=== PATIENT | male | born 1940 | race Native Hawaiian/Other Pacific Islander ===

== ENCOUNTER 2021-12-27 02:04 | Inpatient (IN) | payer MEDICARE, SELFPAY ==
[2021-12-27] VITALS (12 sets, daily range): BP systolic 114–213; BP diastolic 50–90; PULSE 74–96; RESP 16–22; TEMP 36.1–37.1; O2SAT 91–98; BMI 25.0
--- NOTE | 2021-12-27 02:19 | ED_ITS ---
HPI - Abdominal Pain General Chief Complaint: Abdominal Pain Stated Complaint: ABD. PAIN Time Seen by Provider: 12/27/21 02:06 History of Present Illness HPI narrative: 81-year-old male nonsmoker with cardiac history on Eliquis presents with his daughter and a chief complaint of at least 3 days of severe, generalized abdominal pain with nausea. He is had no bowel movements over this time but is still passing gas. This pain is worse when he moves and improves with rest. He denies any radiation of his pain. He denies any history of the same and has never had abdominal surgery. He denies any new medications or dietary change. He is visiting locally from [place]. He denies runny nose, sore throat or cough. He is had no chest pain, shortness of breath nor fever or chills. He denies urinary complaints such as dysuria, frequency or urgency. Related Data Home Medications Medication Instructions Recorded Confirmed abiraterone 250 mg tablet (Zytiga) 1,000 mg PO DAILY 12/27/21 12/27/21 acetaminophen 325 mg capsule 325 mg PO QID PRN Pain (Scale 12/27/21 12/27/21 (Tylenol) Score 1-3) amiodarone 200 mg tablet 200 mg PO BID 12/27/21 12/27/21 amiodarone 200 mg tablet mg 12/27/21 apixaban 5 mg tablet 5 mg PO BID 12/27/21 12/27/21 ascorbic acid (vitamin C) 500 mg 500 mg PO DAILY 12/27/21 12/27/21 tablet benzonatate 200 mg capsule 200 mg PO TID PRN Cough 12/27/21 12/27/21 clobetasol 0.05 % topical cream 1 applic topical BID PRN rash on 12/27/21 12/27/21 palms empagliflozin 25 mg tablet 25 mg PO QAM 12/27/21 12/27/21 empagliflozin 25 mg tablet mg 12/27/21 (Jardiance) metoprolol succinate 100 mg 100 mg PO DAILY 12/27/21 12/27/21 tablet,extended release 24 hr multivitamin with minerals-folic 1 tab PO DAILY 12/27/21 12/27/21 acid 0.4 mg tablet nifedipine 90 mg tablet,extended 90 mg PO DAILY 12/27/21 12/27/21 release pravastatin 20 mg tablet 20 mg PO DAILY 12/27/21 12/27/21 prednisone 10 mg tablet 10 mg PO DAILY 12/27/21 12/27/21 sitagliptin 50 mg-metformin ER 2 tab PO DAILY 12/27/21 12/27/21 1,000 mg tablet,extended release 24h mp (Janumet XR) Allergies Allergy/AdvReac Type Severity Reaction Status Date / Time No Known Drug Allergies Allergy Verified 12/27/21 02:39 Review of Systems Review of Systems Narrative: GENERAL: Denies chills, fatigue, malaise, fever, sweats. HEENT: Denies sinus pain, ear pain, sore throat, difficulty swallowing, dizziness. RESPIRATORY: Denies dyspnea, cough, wheezing, hemoptysis, sputum. CARDIOVASCULAR: Denies chest pain, palpitations, orthopnea, edema, GASTROINTESTINAL: See HPI : Denies dysuria, frequency, incontinence, hematuria, urinary retention. MUSCULOSKELETAL: denies weakness, joint pain, or bony pain SKIN: Denies rash, skin lesions, or other NEUROLOGIC: Denies weakness, headache, numbness, change in speech, confusion, seizures, incoordination. PSYCHIATRIC: No concerning psychosocial issues. 12 point review of systems is negative except for those stated above Patient History Medical History (Updated 12/27/21 @ 08:56 by Antoinette Jackson RN) Afib Diabetes mellitus Hydronephrosis of right kidney Hyperlipidemia Hypertension Social History household members: spouse and family Smoking Status: Never smoker Exam Narrative Exam Narrative: GENERAL: [81] year old patient appears stated age. Well-developed patient, in mild distress. HEAD: Atraumatic. Normocephalic. EYES: Pupils equal round and reactive. Extraocular motions intact. No scleral icterus. No injection or drainage. ENT: Nose without bleeding, purulent drainage. Throat without erythema, tonsillar hypertrophy or exudate. Airway patent. NECK: Trachea midline. Non tender CARDIOVASCULAR: Regular rate and rhythm without murmurs, gallops, or rubs. RESPIRATORY: Clear to auscultation. Breath sounds equal bilaterally. No wheezes, rales, or rhonchi. GASTROINTESTINAL: Abdomen soft, non-tender, nondistended. EXTREMITIES: No edema or joint tenderness. BACK: Nontender without deformity or crepitance. No flank tenderness. NEURO: AOx3. SKIN: No rash or erythema of visible areas Initial Vital Signs Initial Vital Signs: Vital Signs Temperature 98.8 F 12/27/21 02:36 Pulse Rate 95 H 12/27/21 02:36 Respiratory Rate 19 12/27/21 02:36 Blood Pressure 201/86 H 12/27/21 02:36 Pulse Oximetry 96 12/27/21 02:36 Oxygen Delivery Method 12/27/21 02:36 Course Orders Ordered: Acetaminophen (Acetaminophen 325 Mg Tablet) 650 mg PO Q6HR [facility] Last Admin: 12/27/21 17:39 Dose: Not Given Documented By: Admin: 12/27/21 12:18 Dose: 650 mg Documented By: LORRIE Amiodarone HCl (Amiodarone 200 Mg Tablet) 200 mg PO BID [facility] Last Admin: 12/27/21 11:14 Dose: 200 mg Documented By: LORRIE Apixaban (Apixaban 5 Mg Tablet) 2.5 mg PO BID [facility] Bisacodyl (Bisacodyl 5 Mg Tablet) 5 mg PO BID PRN PRN Reason: Constipation Last Admin: 12/27/21 13:24 Dose: 5 mg Documented By: LORRIE Docusate Sodium (Docusate 100 Mg Capsule) 100 mg PO BID [facility] Last Admin: 12/27/21 13:24 Dose: 100 mg Documented By: LORRIE Sodium Chloride (Normal Saline 0.9%) 1,000 mls @ 150 mls/hr IV CONT [facility] Last Admin: 12/27/21 09:52 Dose: 150 mls/hr Documented By: Infusion: 12/27/21 09:52 Dose: 150 mls/hr Documented By: Admin: 12/27/21 07:18 Dose: 150 mls/hr Documented By: AMBER Metoprolol Succinate (Metoprolol Er 50 Mg Tablet) 100 mg PO DAILY [facility] Last Admin: 12/27/21 09:52 Dose: 100 mg Documented By: LORRIE Morphine Sulfate (Morphine 2 Mg/Ml Inj) 2 mg IV Q4H PRN PRN Reason: Pain, Moderate (4-6) Last Admin: 12/27/21 16:29 Dose: 2 mg Documented By: Admin: 12/27/21 12:19 Dose: 2 mg Documented By: LORRIE Nifedipine (Nifedipine 30 Mg Tab Er) 90 mg PO DAILY [facility] Last Admin: 12/27/21 09:52 Dose: 90 mg Documented By: LORRIE Empagliflozin ( Jardiance) 25 Mg Tablet 25 mg PO DAILY [facility] Last Admin: 12/27/21 09:55 Dose: 25 mg Documented By: LORRIE Ondansetron HCl (Ondansetron 4 Mg/2 Ml Inj) 4 mg IV Q8HR PRN PRN Reason: Nausea And Vomiting Last Admin: 12/27/21 12:19 Dose: 4 mg Documented By: LORRIE Ondansetron HCl (Ondansetron 4 Mg Odt) 4 mg PO Q8HR PRN PRN Reason: Nausea And Vomiting Polyethylene Glycol (Polyethylene Glycol 3350 17 Gm Powd.Pack) 17 gm PO DAILY [facility] Last Admin: 12/27/21 13:24 Dose: 17 gm Documented By: LORRIE Pravastatin Sodium (Pravastatin 20 Mg Tablet) 20 mg PO DAILY [facility] Last Admin: 12/27/21 09:52 Dose: 20 mg Documented By: LORRIE Prednisone (Prednisone 5 Mg Tablet) 10 mg PO DAILY [facility] Last Admin: 12/27/21 11:13 Dose: 10 mg Documented By: LORRIE Sennosides (Sennosides 8.6 Mg Tablet) 8.6 mg PO BEDTIME [facility] Discontinued Medications Apixaban (Apixaban 5 Mg Tablet) 5 mg PO BID [facility] Last Admin: 12/27/21 11:13 Dose: 5 mg Documented By: LORRIE Enoxaparin Sodium (Enoxaparin 40 Mg/0.4 Ml Syringe) 40 mg SUBCUT DAILY [facility] Hydromorphone HCl (Hydromorphone 0.5 Mg Inj) 0.5 mg IV NOW ONE Stop: 12/27/21 02:20 Last Admin: 12/27/21 02:46 Dose: 0.5 mg Documented By: SUKUMAR Sodium Chloride (Normal Saline 0.9%) 1,000 mls @ 1,000 mls/hr IV BOLUS ONE Stop: 12/27/21 03:18 Last Infusion: 12/27/21 03:45 Dose: 0 mls/hr Documented By: Admin: 12/27/21 02:46 Dose: 1,000 mls/hr Documented By: SUKUMAR Piperacillin Sod/Tazobactam (Sod 4.5 gm/ Sodium Chloride) 100 mls @ 200 mls/hr IV NOW ONE Stop: 12/27/21 03:18 Last Infusion: 12/27/21 04:59 Dose: 0 mls/hr Documented By: Admin: 12/27/21 03:47 Dose: 200 mls/hr Documented By: SUKUMAR Sodium Chloride (Normal Saline 0.9%) 2,041.17 mls @ 680.39 mls/hr 30 ml/kg infuse over 3 hr (2041.17 ml) IV NOW ONE Stop: 12/27/21 06:16 Last Admin: 12/27/21 03:47 Dose: 680.39 mls/hr Documented By: SUKUMAR Ondansetron HCl (Ondansetron 4 Mg/2 Ml Inj) 4 mg IV NOW ONE Stop: 12/27/21 02:20 Last Admin: 12/27/21 02:46 Dose: 4 mg Documented By: USKUMAR Ondansetron HCl (Ondansetron 4 Mg/2 Ml Inj) 4 mg IV NOW ONE Stop: 12/27/21 04:59 Last Admin: 12/27/21 05:10 Dose: 4 mg Documented By: SUKUMAR Vital Signs Vital signs: Vital Signs - 8 hr 12/27/21 02:36 Temperature 98.8 F Pulse Rate 95 H Respiratory Rate 19 Blood Pressure 201/86 H Pulse Oximetry 96 Oxygen Delivery Method Room Air MDM - Abdominal Pain Lab Data Result diagrams: 12/27/21 02:25 12/27/21 02:25 Labs: Lab Results 12/27/21 12/27/21 12/27/21 Range/Units 02:25 02:25 02:25 WBC 11.3 H (4.5-11.0) X10^3/uL RBC 5.01 (4.5-5.9) X10^6/uL Hgb 13.1 L (13.5-17.5) g/dL Hct 40.9 L (41-53) % MCV 81.7 (80-100) fL MCH 26.1 (26-34) PG MCHC 32.0 (30-36) % RDW 19.0 H (11.6-14.8) % Plt Count 290 (150-400) X10^3/uL Neut % (Auto) 92.1 H (50-75) % Lymph % (Auto) 5.7 L (25-40) % [place] % (Auto) 1.7 L (3-14) % Eos % (Auto) 0.3 L (2-4) % Baso % (Auto) 0.2 (0-2) % Neut # (Auto) 25886 H (0585-5609) /uL Lymph # (Auto) 600 L (2429-3002) /uL [place] # (Auto) 200 (0-900) /uL Eos # (Auto) 0 (0-450) /uL Baso # (Auto) 0 (0-100) /uL Sodium 139 (137-145) mmol/L Potassium 3.8 (3.4-5.1) mmol/L Chloride 105 (98-107) mmol/L Carbon Dioxide 21 L (22-32) mmol/L BUN 23 H (9-20) mg/dL Creatinine 1.50 H (0.66-1.25) mg/dL Estimated GFR 47 L (>60) mL/min BUN/Creatinine Ratio 15.3 (6-22) Glucose 181 H (80-110) mg/dL Lactate 4.1 H* (0.7-2.1) mmol/L Calcium 9.0 (8.4-10.2) mg/dL Total Bilirubin 0.4 (0.2-1.3) mg/dL AST 25 (17-59) IU/L ALT 21 (<50) IU/L Alkaline Phosphatase 47 (38-126) U/L Total Protein 7.7 (6.3-8.2) g/dL Albumin 4.2 (3.5-5.0) g/dL Globulin 3.5 (1.7-4.1) g/dL Albumin/Globulin Ratio 1.2 (1.0-2.8) Lipase (23-300) U/L Urine Color Urine Appearance Urine pH (4.5-8.0) Ur Specific [place] (1.000-1.035) Urine Protein (Negative) Urine Glucose (UA) (Negative) g/dL Urine Ketones (NEGATIVE) Urine Occult Blood (Negative) Urine Nitrate (Negative) Urine Bilirubin (NEGATIVE) Urine Urobilinogen (0.2) E.U./dL Ur Leukocyte Esterase (NEGATIVE) Urine RBC (0-5/HPF) Urine WBC (0-5/HPF) Urine Bacteria (None) Ur Culture Indicated? SARS-CoV-2 (PCR) (Negative) Blood Type Antibody Screen 12/27/21 12/27/21 12/27/21 Range/Units 02:25 02:46 02:49 WBC (4.5-11.0) X10^3/uL RBC (4.5-5.9) X10^6/uL Hgb (13.5-17.5) g/dL Hct (41-53) % MCV (80-100) fL MCH (26-34) PG MCHC (30-36) % RDW (11.6-14.8) % Plt Count (150-400) X10^3/uL Neut % (Auto) (50-75) % Lymph % (Auto) (25-40) % [place] % (Auto) (3-14) % Eos % (Auto) (2-4) % Baso % (Auto) (0-2) % Neut # (Auto) (1666-7666) /uL Lymph # (Auto) (8724-6444) /uL [place] # (Auto) (0-900) /uL Eos # (Auto) (0-450) /uL Baso # (Auto) (0-100) /uL Sodium (137-145) mmol/L Potassium (3.4-5.1) mmol/L Chloride (98-107) mmol/L Carbon Dioxide (22-32) mmol/L BUN (9-20) mg/dL Creatinine (0.66-1.25) mg/dL Estimated GFR (>60) mL/min BUN/Creatinine Ratio (6-22) Glucose (80-110) mg/dL Lactate (0.7-2.1) mmol/L Calcium (8.4-10.2) mg/dL Total Bilirubin (0.2-1.3) mg/dL AST (17-59) IU/L ALT (<50) IU/L Alkaline Phosphatase (38-126) U/L Total Protein (6.3-8.2) g/dL Albumin (3.5-5.0) g/dL Globulin (1.7-4.1) g/dL Albumin/Globulin Ratio (1.0-2.8) Lipase 51 (23-300) U/L Urine Color Urine Appearance Urine pH (4.5-8.0) Ur Specific [place] (1.000-1.035) Urine Protein (Negative) Urine Glucose (UA) (Negative) g/dL Urine Ketones (NEGATIVE) Urine Occult Blood (Negative) Urine Nitrate (Negative) Urine Bilirubin (NEGATIVE) Urine Urobilinogen (0.2) E.U./dL Ur Leukocyte Esterase (NEGATIVE) Urine RBC (0-5/HPF) Urine WBC (0-5/HPF) Urine Bacteria (None) Ur Culture Indicated? SARS-CoV-2 (PCR) Negative (Negative) Blood Type A Positive Antibody Screen Negative 12/27/21 12/27/21 Range/Units 04:30 05:03 WBC (4.5-11.0) X10^3/uL RBC (4.5-5.9) X10^6/uL Hgb (13.5-17.5) g/dL Hct (41-53) % MCV (80-100) fL MCH (26-34) PG MCHC (30-36) % RDW (11.6-14.8) % Plt Count (150-400) X10^3/uL Neut % (Auto) (50-75) % Lymph % (Auto) (25-40) % [place] % (Auto) (3-14) % Eos % (Auto) (2-4) % Baso % (Auto) (0-2) % Neut # (Auto) (1114-1287) /uL Lymph # (Auto) (5350-5048) /uL [place] # (Auto) (0-900) /uL Eos # (Auto) (0-450) /uL Baso # (Auto) (0-100) /uL Sodium (137-145) mmol/L Potassium (3.4-5.1) mmol/L Chloride (98-107) mmol/L Carbon Dioxide (22-32) mmol/L BUN (9-20) mg/dL Creatinine (0.66-1.25) mg/dL Estimated GFR (>60) mL/min BUN/Creatinine Ratio (6-22) Glucose (80-110) mg/dL Lactate 2.8 H (0.7-2.1) mmol/L Calcium (8.4-10.2) mg/dL Total Bilirubin (0.2-1.3) mg/dL AST (17-59) IU/L ALT (<50) IU/L Alkaline Phosphatase (38-126) U/L Total Protein (6.3-8.2) g/dL Albumin (3.5-5.0) g/dL Globulin (1.7-4.1) g/dL Albumin/Globulin Ratio (1.0-2.8) Lipase (23-300) U/L Urine Color Yellow Urine Appearance Cloudy Urine pH 6.5 (4.5-8.0) Ur Specific [place] <=1.005 (1.000-1.035) Urine Protein 2+ H (Negative) Urine Glucose (UA) 1+ H (Negative) g/dL Urine Ketones Negative (NEGATIVE) Urine Occult Blood 3+ H (Negative) Urine Nitrate Negative (Negative) Urine Bilirubin Negative (NEGATIVE) Urine Urobilinogen 0.2 (0.2) E.U./dL Ur Leukocyte Esterase Negative (NEGATIVE) Urine RBC 30-100/hpf H (0-5/HPF) Urine WBC 1-5/hpf (0-5/HPF) Urine Bacteria Few (2-10) H (None) Ur Culture Indicated? Cult not indicated SARS-CoV-2 (PCR) (Negative) Blood Type Antibody Screen Imaging Data CT scan - abdomen/pelvis: Radiologist's Impression: [address] [id number] ReportSigned Patient: Torsten SANTIAGO JR FMR#: [id number]: 01/08/1930cct:[id number]/Sex: 89 / MDate of Service: 12/27/21Loc: EDAccession Number: [id number] Procedure: XR chest 2V Ordering Provider: Michelle Edwards D.O. PROCEDURE: XR CHEST 2V INDICATIONS: shortness of breath TECHNIQUE: 2 views of the chest were acquired. COMPARISON: [facility], CT, CT ANGIO CHEST ABDOMEN PELVIS, 12/18/2020, 17:09. [facility], CR, XR CHEST 1V, 12/18/2020, 14:11. FINDINGS: Surgical changes and devices: Postsurgical changes of the upper abdomen left axilla. Lungs and pleura: Lungs are clear. No pleural effusions or pneumothorax. Mediastinum: Mediastinal contours are normal. Heart size is normal. Vascular calcifications throughout the aorta. Bones and chest wall: No suspicious bony abnormalities or acute osseous abnormality.. Soft tissues appear unremarkable. IMPRESSION: No evidence of an acute cardiopulmonary abnormality. Dictated by: Jer Lipscomb D.O. on 12/27/2021 at 16:42 Approved by: Jer Lipscomb D.O. on 12/27/2021 at 16:47 MDM Narrative Medical decision making narrative: Patient presents with significant abdominal pain and distention with critically elevated lactate and partial clearance after resuscitation. He has required multiple doses IV pain control and antiemetics, he will require hospitalization for further characterization stabilization of his condition Discharge Plan Departure Patient Disposition: Admitted As Inpatient Clinical Impression: Abdominal pain, Acidosis, lactic Admit Date/Time: 12/27/21 05:51 Admit Provider: Omero Pan
--- NOTE | 2021-12-27 02:19 | DI.RAD.S_ITS ---
PROCEDURE: XR ACUTE ABDOMEN SERIES INDICATIONS: Abdominal pain TECHNIQUE: One view chest and two views of the abdomen were acquired. COMPARISON: [facility], CT, CT ABDOMEN PELVIS W CON, 12/27/2021, 3:01. FINDINGS: Surgical changes and devices: Likely postsurgical changes of the distal right clavicle. Chest: Small left-sided pleural effusion. Predominantly linear densities noted at the left lung base. Heart size is normal. Vascular calcifications within the aorta. No pleural effusions. No pneumoperitoneum. Abdomen: Bowel gas pattern is nonobstructed. No suspicious calcifications. Visualized solid organ contours appear normal. No free air. Postsurgical changes of the pelvis. Bones: No suspicious bony lesions. Degenerative changes of the shoulders, spine, and hips. IMPRESSION: Nonobstructive bowel gas pattern without evidence of free air. Left lung base small pleural effusion with adjacent atelectasis. Developing consolidation not excluded. No significant discrepancies from preliminary report. Dictated by: Jer Lipscomb D.O. on 12/27/2021 at 6:09 Approved by: Jer Lipscomb D.O. on 12/27/2021 at 6:14
[2021-12-27 02:39] LABS: Add Manual Diff / Slide Review NO; Basophils Absolute Auto 0 /uL (0-100); Basophils Percent Auto 0.2 % (0-2); Eosinophils Absolute Auto 0 /uL (0-450); Eosinophils Percent Auto 0.3 % (2-4); Hematocrit 40.9 % (41-53); Hemoglobin 13.1 g/dL (13.5-17.5); Lymphocytes Absolute Auto 600 /uL (1100-4500); Lymphocytes Percent Auto 5.7 % (25-40); Mean Corpuscular Hemoglobin 26.1 PG (26-34); Mean Corpuscular Volume 81.7 fL (80-100); Monocytes Absolute Auto 200 /uL (0-900); Monocytes Percent Auto 1.7 % (3-14); Neutrophils Absolute Auto 10400 /uL (1500-7000); Neutrophils Percent Auto 92.1 % (50-75); Platelet Count 290 X10^3/uL (150-400); Red Blood Cell Count 5.01 X10^6/uL (4.5-5.9); White Blood Cell Count 11.3 X10^3/uL (4.5-11.0)
[2021-12-27] MEDS: HYDROMORPHONE 0.5 MG INJ IV (02:46)
[2021-12-27] MEDS: ONDANSETRON 4 MG/2 ML INJ IV ×3 (02:46→12:19)
[2021-12-27] MEDS: SODIUM CHLORIDE 0.9% 1,000 ML 1000 ML IV (02:46)
[2021-12-27 02:51] LABS: Alanine Aminotransferase 21 IU/L (<50); Albumin 4.2 g/dL (3.5-5.0); Albumin Globulin Ratio 1.2 (1.0-2.8); Alkaline Phosphatase 47 U/L (38-126); Aspartate Aminotransferase 25 IU/L (17-59); BUN Creatinine Ratio 15.3 (6-22); Bilirubin Total 0.4 mg/dL (0.2-1.3); Blood Urea Nitrogen 23 mg/dL (9-20); Carbon Dioxide 21 mmol/L (22-32); Chloride 105 mmol/L (98-107); Estimated Glomerular Filt Rate 47 mL/min (>60); Globulin 3.5 g/dL (1.7-4.1); Glucose 181 mg/dL (80-110); HEMOLYSIS 18 (0-50); Potassium 3.8 mmol/L (3.4-5.1); Sodium 139 mmol/L (137-145); Total Protein 7.7 g/dL (6.3-8.2)
--- NOTE | 2021-12-27 02:55 | DI.CT.S_ITS ---
PROCEDURE: CT ABDOMEN PELVIS W CON INDICATIONS: severe abdominal pain TECHNIQUE: After the administration of intravenous contrast, axial sections acquired from the lung bases to the pubic symphysis. Coronal and sagittal reformats were performed. For radiation dose reduction, the following was used: automated exposure control, adjustment of mA and/or kV according to patient size. COMPARISON: None. FINDINGS: Image quality: Excellent. Lung bases: Small left-sided pleural effusion. There is left basilar atelectasis. Mild dependent atelectasis bilaterally. Heart: Heart size is normal. No pericardial effusion. Coronary vascular calcifications and aortic valvular calcifications. ABDOMEN: Liver: Subcentimeter hypodensities within the liver too small to further characterize but statistically represent simple cysts. Gallbladder: Layering gallstones noted. No wall thickening or surrounding inflammation to suggest acute cholecystitis. Biliary ducts: Unremarkable. Pancreas: Unremarkable. Spleen: Unremarkable. Adrenal Glands: Unremarkable. Kidneys and Ureters: There is moderate hydronephrosis of the right urinary collecting system. Right-sided simple cysts along with bilateral subcentimeter hypodensities too small to further characterize but statistically represent simple cysts. There is significant perinephric and periureteral inflammation worse along the right ureter. There is urothelial hyperenhancement, worse within the right ureter. Stomach and Bowel: Stomach is unremarkable. Inflammation noted adjacent to the proximal duodenum is likely secondary to urinary tract processes. Small amount of fluid is also alignment noted within the right greater than left pericolic gutters also favored to be due to additional process. No evidence of obstruction. Questionable wall thickening of the right colon likely secondary to nondistention. Appendix is normal. Moderate stool burden noted throughout the colon. Peritoneum: Small amount of ascites. No free air. Ventral Wall: No hernias. Abdominal Nodes: No retroperitoneal or mesenteric adenopathy by size criteria. Vessels: Aorta and inferior vena cava are normal in size. PELVIS: Pelvic Organs: Status post prostatectomy. Bladder: Bladder demonstrates mild wall thickening with adjacent inflammation. Pelvic Nodes: No enlarged lymph nodes. Miscellaneous: Small fat containing right greater than left inguinal hernias. Bones: Multiple sclerotic lesions noted throughout the spine most prominent throughout the L1 vertebral body and posterior elements. Bilateral pars defects of L5. No significant listhesis. Degenerative changes noted throughout the spine and hips. IMPRESSION: Findings most consistent with urinary tract infectious/inflammatory process with bladder wall thickening and inflammation with urothelial inflammation most prominently within the right collecting system. In addition there is moderate right-sided hydronephrosis. Other etiologies include recently passed calcifications, although favored less likely. Questionable wall thickening of the right colon with adjacent inflammation may represent colitis. This is increased in prominence given nondistention of the right colon. Recommend correlation with up-to-date colon cancer screening as well. Findings concerning for metastatic prostate cancer with multiple sclerotic lesions most noticeably within the L1 vertebrae. Cholelithiasis. Small left-sided pleural effusion with adjacent atelectasis. Findings discussed over the telephone with inpatient provider Dr. Servin by Dr. Jer Lipscomb at approximately 0650 hours AST on 12/27/2021. Dictated by: Jer Lipscomb D.O. on 12/27/2021 at 6:36 Approved by: Jer Lipscomb D.O. on 12/27/2021 at 6:57
[2021-12-27 03:06] LABS: Lactate (Lactic Acid) 4.1 mmol/L (0.7-2.1)
[2021-12-27 03:21] LABS: COVID19 -Nasal RAPID Negative (Negative)
[2021-12-27] MEDS: PIPERACILLIN/TAZO 4.5 GM in SODIUM CHLORIDE 0.9% 100 ML IV (03:47)
[2021-12-27] MEDS: SODIUM CHLORIDE 0.9% 2,041.17 ML 680.39 ML IV (03:47)
--- NOTE | 2021-12-27 03:55 | PC.NURSE ---
Pt reports pain is much better, states he is also sleepy. Pt quick to sleep in room, but maintains oxygen levels on RA, breathing adequately.
[2021-12-27 04:30] LABS: Reflexed Lactate in 2 Hours Y
[2021-12-27 04:52] LABS: Appearance Urine UA CLOUDY; Bilirubin Urine UA NEGATIVE (NEGATIVE); Color Urine UA YELLOW; Glucose Urine UA 1+ g/dL (Negative); Ketones Urine UA NEGATIVE (NEGATIVE); Leukocyte Esterase Urine UA NEGATIVE (NEGATIVE); Nitrite Urine UA NEGATIVE (Negative); Occult Blood Urine UA 3+ (Negative); Protein Urine UA 2+ (Negative); Specific Gravity Urine UA <=1.005 (1.000-1.035); Urobilinogen Urine UA 0.2 E.U./dL (0.2); pH Urine UA 6.5 (4.5-8.0)
[2021-12-27 04:53] LABS: Bacteria Urine Few (2-10); Culture Indicated Urine Cult Not Indicated; RBC Urine 30-100/HPF (0-5/HPF); WBC Urine 1-5/HPF (0-5/HPF)
[2021-12-27 05:19] LABS: Lactate 2HR (Lactic Acid Rflx) 2.8 mmol/L (0.7-2.1)
--- NOTE | 2021-12-27 06:40 | PC.ADMIT ---
[id number] [facility] Admission Note: The patient,Demetri Saldivar,81 y/o, was given written information regarding hospital policies, unit procedures and contact persons. Patient's smoking status: Never smoker. Vital Signs - 8 hr 12/27/21 02:36 12/27/21 06:19 12/27/21 03:27 Temperature 98.8 F Pulse Rate 95 H 74 Respiratory Rate 19 17 Blood Pressure 201/86 H 179/89 H 195/79 H Pulse Oximetry 96 93 Oxygen Delivery Method Room Air Room Air 12/27/21 03:27 12/27/21 03:30 12/27/21 03:30 Temperature Pulse Rate 85 86 Respiratory Rate Blood Pressure 174/77 H Pulse Oximetry 93 92 Oxygen Delivery Method 12/27/21 04:00 12/27/21 04:01 12/27/21 04:01 Temperature Pulse Rate 90 91 H Respiratory Rate Blood Pressure 213/90 H Pulse Oximetry 93 93 Oxygen Delivery Method 12/27/21 04:30 12/27/21 04:31 12/27/21 04:31 Temperature Pulse Rate 96 H 91 H Respiratory Rate Blood Pressure 189/74 H Pulse Oximetry 93 93 Oxygen Delivery Method Patient up from the ED via stretcher at 0630. Moved over to bed via slider board and [address] Pan in to see patient at this time.
--- NOTE | 2021-12-27 06:42 | PM.HP.1 ---
History of Present Illness History of Present Illness Date Patient Seen: 12/27/21 Time Patient Seen: 06:42 Chief complaint: ABD. PAIN Narrative: This is an 81-year-old male with an extensive past medical history which he is unable to describe who presents now with 1 day of abdominal pain, onset of vomiting early this morning and apparent lactic acidosis. He is visiting his daughter from [place]. We are still obtaining his medication list to establish some of the parts of his past medical history. He denies any history of previous abdominal pain condition or abdominal surgery. A lipase level is pending. He does not drink alcohol. He has no history of pancreatitis or colitis. He has no urinary history that he can tell us about. There has been no fever, diarrhea or rectal bleeding. He has had no bowel movement for 3 days. His white blood count is 11.3 with a lactic acid level of 2.8. The creatinine is 1.5. The baseline is unclear. His CT scan shows [id number] right hydronephrosis with inflammation of the UPJ area. There is low-grade cystitis and there is mild wall thickening of the cecum and colon. The differential remains broad with possible viral gastroenteritis, isolated colitis, pancreatitis, ureterolithiasis, cystitis and pyelonephritis. His UA has 30-100 rbc's and 1-5 wbc's. Patient History Medical History (Updated 12/27/21 @ 07:04 by Omero Pan MD) Afib Diabetes mellitus Hyperlipidemia Hypertension Family & Social History Family history unavailable: Yes Social History: He is visiting from [place] Safety & Behavioral: Feels Safe in Current Yes Environment Tobacco & Substance use: Smoking Status Never smoker alcohol intake frequency 0-2 drinks per day Substance Use Type does not use Meds Home Medications and Allergies Home Medications Medication Instructions Recorded Confirmed Type abiraterone 250 mg tablet (Zytiga) 1,000 mg PO DAILY 12/27/21 12/27/21 History acetaminophen 325 mg capsule 325 mg PO QID PRN Pain (Scale 12/27/21 12/27/21 History (Tylenol) Score 1-3) amiodarone 200 mg tablet 200 mg PO BID 12/27/21 12/27/21 History amiodarone 200 mg tablet mg 12/27/21 History apixaban 5 mg tablet 5 mg PO BID 12/27/21 12/27/21 History ascorbic acid (vitamin C) 500 mg 500 mg PO DAILY 12/27/21 12/27/21 History tablet benzonatate 200 mg capsule 200 mg PO TID PRN Cough 12/27/21 12/27/21 History clobetasol 0.05 % topical cream 1 applic topical BID PRN rash on 12/27/21 12/27/21 History palms empagliflozin 25 mg tablet 25 mg PO QAM 12/27/21 12/27/21 History empagliflozin 25 mg tablet mg 12/27/21 History (Jardiance) metoprolol succinate 100 mg 100 mg PO DAILY 12/27/21 12/27/21 History tablet,extended release 24 hr multivitamin with minerals-folic 1 tab PO DAILY 12/27/21 12/27/21 History acid 0.4 mg tablet nifedipine 90 mg tablet,extended 90 mg PO DAILY 12/27/21 12/27/21 History release pravastatin 20 mg tablet 20 mg PO DAILY 12/27/21 12/27/21 History prednisone 10 mg tablet 10 mg PO DAILY 12/27/21 12/27/21 History sitagliptin 50 mg-metformin ER 2 tab PO DAILY 12/27/21 12/27/21 History 1,000 mg tablet,extended release 24h mp (Janumet XR) Allergies Allergy/AdvReac Type Severity Reaction Status Date / Time No Known Drug Allergies Allergy Verified 12/27/21 02:39 Review of Systems Review of Systems Narrative: Positive for abdominal pain, weakness and vomiting. Negative for fevers, chills, sweats, diarrhea, rectal bleeding, coughing, chest pain, headaches, joint pain, seizures, sore throat, new allergies Exam Vital Signs (past 8 hours): - 12/27/21 02:36 12/27/21 06:19 12/27/21 03:27 Temperature 98.8 F Pulse Rate 95 H 74 Respiratory Rate 19 17 Blood Pressure 201/86 H 179/89 H 195/79 H Pulse Oximetry 96 93 Oxygen Delivery Method Room Air Room Air 12/27/21 03:27 12/27/21 03:30 12/27/21 03:30 Temperature Pulse Rate 85 86 Respiratory Rate Blood Pressure 174/77 H Pulse Oximetry 93 92 Oxygen Delivery Method 12/27/21 04:00 12/27/21 04:01 12/27/21 04:01 Temperature Pulse Rate 90 91 H Respiratory Rate Blood Pressure 213/90 H Pulse Oximetry 93 93 Oxygen Delivery Method 12/27/21 04:30 12/27/21 04:31 12/27/21 04:31 Temperature Pulse Rate 96 H 91 H Respiratory Rate Blood Pressure 189/74 H Pulse Oximetry 93 93 Oxygen Delivery Method Oxygen Delivery Method Room Air Narrative Exam Narrative: Alert but sleepy. No apparent distress Pupils are equally round and reactive to light and accommodation. Sclerae are pink and nonicteric. The right eyelid is glued shut and takes some effort to open Extraocular muscles are intact Throat looks mildly dehydrated and dry on the mucous membranes No lymph nodes are felt head, neck, supraclavicular area There is no thyromegaly JVD is less than 6 cm There is no carotid bruits heard Heart is regular rate and rhythm without murmur Lungs are clear to auscultation bilaterally Abdomen is soft, mildly distended, diffusely tender without localizing. Bowel sounds are soft. There is no organomegaly. Extremities have no ankle edema Skin has no rash or jaundice Neurological exam: Cranial nerves 2-12 test intact, there is no tremor, motor function is 4/5 throughout Objective Labs Result Diagrams: 12/27/21 02:25 12/27/21 02:25 Labs: Laboratory Results - last 24 hr 12/27/21 12/27/21 12/27/21 02:25 02:25 02:25 WBC 11.3 H RBC 5.01 Hgb 13.1 L Hct 40.9 L MCV 81.7 MCH 26.1 MCHC 32.0 RDW 19.0 H Plt Count 290 Neut % (Auto) 92.1 H Lymph % (Auto) 5.7 L [place] % (Auto) 1.7 L Eos % (Auto) 0.3 L Baso % (Auto) 0.2 Neut # (Auto) 82395 H Lymph # (Auto) 600 L [place] # (Auto) 200 Eos # (Auto) 0 Baso # (Auto) 0 Sodium 139 Potassium 3.8 Chloride 105 Carbon Dioxide 21 L BUN 23 H Creatinine 1.50 H Estimated GFR 47 L BUN/Creatinine Ratio 15.3 Glucose 181 H Lactate 4.1 H* Calcium 9.0 Total Bilirubin 0.4 AST 25 ALT 21 Alkaline Phosphatase 47 Total Protein 7.7 Albumin 4.2 Globulin 3.5 Albumin/Globulin Ratio 1.2 Urine Color Urine Appearance Urine pH Ur Specific [place] Urine Protein Urine Glucose (UA) Urine Ketones Urine Occult Blood Urine Nitrate Urine Bilirubin Urine Urobilinogen Ur Leukocyte Esterase Urine RBC Urine WBC Urine Bacteria Ur Culture Indicated? SARS-CoV-2 (PCR) Blood Type Antibody Screen 12/27/21 12/27/21 12/27/21 02:46 02:49 04:30 WBC RBC Hgb Hct MCV MCH MCHC RDW Plt Count Neut % (Auto) Lymph % (Auto) [place] % (Auto) Eos % (Auto) Baso % (Auto) Neut # (Auto) Lymph # (Auto) [place] # (Auto) Eos # (Auto) Baso # (Auto) Sodium Potassium Chloride Carbon Dioxide BUN Creatinine Estimated GFR BUN/Creatinine Ratio Glucose Lactate Calcium Total Bilirubin AST ALT Alkaline Phosphatase Total Protein Albumin Globulin Albumin/Globulin Ratio Urine Color Yellow Urine Appearance Cloudy Urine pH 6.5 Ur Specific [place] <=1.005 Urine Protein 2+ H Urine Glucose (UA) 1+ H Urine Ketones Negative Urine Occult Blood 3+ H Urine Nitrate Negative Urine Bilirubin Negative Urine Urobilinogen 0.2 Ur Leukocyte Esterase Negative Urine RBC 30-100/hpf H Urine WBC 1-5/hpf Urine Bacteria Few (2-10) H Ur Culture Indicated? Cult not indicated SARS-CoV-2 (PCR) Negative Blood Type A Positive Antibody Screen Negative 12/27/21 05:03 WBC RBC Hgb Hct MCV MCH MCHC RDW Plt Count Neut % (Auto) Lymph % (Auto) [place] % (Auto) Eos % (Auto) Baso % (Auto) Neut # (Auto) Lymph # (Auto) [place] # (Auto) Eos # (Auto) Baso # (Auto) Sodium Potassium Chloride Carbon Dioxide BUN Creatinine Estimated GFR BUN/Creatinine Ratio Glucose Lactate 2.8 H Calcium Total Bilirubin AST ALT Alkaline Phosphatase Total Protein Albumin Globulin Albumin/Globulin Ratio Urine Color Urine Appearance Urine pH Ur Specific [place] Urine Protein Urine Glucose (UA) Urine Ketones Urine Occult Blood Urine Nitrate Urine Bilirubin Urine Urobilinogen Ur Leukocyte Esterase Urine RBC Urine WBC Urine Bacteria Ur Culture Indicated? SARS-CoV-2 (PCR) Blood Type Antibody Screen Assessment & Plan Assessment & Plan narrative: This is an 81-year-old male with an extensive past medical history which he is unable to describe who presents now with 1 day of abdominal pain, onset of vomiting early this morning and apparent lactic acidosis. He is visiting his daughter from [place]. Abdominal pain, present on admission. Active. - The differential remains broad with possible viral gastroenteritis, isolated colitis, pancreatitis, ureterolithiasis, cystitis and pyelonephritis. -the CT scan raises several possibilities and the microscopic hematuria suggests a urinary source. -his diffuse tenderness suggests pancreatitis and a lipase level is pending. -he will be on bowel rest with IV fluid resuscitation while the workup is ongoing. -no signs of a surgical abdomen so far. Lactic acidosis, present on admission. Active. -lactic acid level 2.8 on admission -secondary to acute abdominal process with gastroenteritis/urinary source suspected. -continue IV fluid resuscitation Microscopic hematuria, present on admission. Active. -CT scan suggests low-grade cystitis, right hydronephrosis and UPJ inflammation changes. -no signs of ureteral lithiasis on CT scan or neoplasm. -ED discussed this with Urology who did not feel there was an acute process for them to be involved with so far. Probable acute kidney injury, present on admission. Active. -creatinine is 1.5 with unknown baseline and possible CKD -continue IV fluid resuscitation and follow. Hyperglycemia, present on admission. Active. -glucose 181 on admission -probable diabetes mellitus, to be clarified today as his medication list arrives and more information is found. -follow blood sugars Other unknown medical problems, present admission. Chronic. -patient does not recall what conditions he has had. I would expect his medication list to be helpful. Lovenox for DVT prevention His daughter Prabha Hopper is his backup decision maker. Time Spent With Patient Critical Care time: I spent a total of [] minutes of critical care time on this patient's care today; this time is exclusive of procedural time.
[2021-12-27 07:03] LABS: Lipase 51 U/L (23-300)
[2021-12-27] MEDS: SODIUM CHLORIDE 0.9% 1,000 ML 150 ML IV ×2 (07:18→09:52)
[2021-12-27] MEDS: PRAVASTATIN 20 MG TABLET PO (09:52)
[2021-12-27] MEDS: NIFEdipine 30 MG TAB ER 90 MG PO (09:52)
[2021-12-27] MEDS: METOPROLOL ER 50 MG TABLET 100 MG PO (09:52)
[2021-12-27] MEDS: APIXABAN 5 MG TABLET PO (11:13)
[2021-12-27] MEDS: predniSONE 5 MG TABLET 10 MG PO (11:13)
--- NOTE | 2021-12-27 11:13 | CM.DANOTE ---
DCP Assessment: Payor: Medicare PCP: Unknown. Pt is a 81 y.o. M who presented to the ED with post 1 day of abdominal pain with onset of vomiting. Pt is visiting his daughter from [place]. Pt has a PMH of Afib, DM, hyperlipidemia, and HTN. Pt admitted for further management and evaluation for his abdominal pain and lactic acidosis. DCP met with pt and pt daughter this morning. Pt sleeping in bed. Daughter was able to meet with DCP. DCP introduced herself and role. Pt daughter, Prabha, states that the pt is visiting her from [place] and he is going to stay with her until February. Prabha states that the pt lives with his and daughter in [place] and he uses a cane to get around. Prabha states that he does not drive and relies on others for transportation. Prabha states that her mother is also in town with pt. Prabha denies any resources at this time but DCP provided her with her number as the plan progresses and other questions might arise. Prabha states that upon discharge, she will transport the back to her house. White board was updated and instructed to call. Prabha thankful for the discussion. P: Once pt is medically stable, pt to discharge to his daughters house via daughter POV. DCP to continue to follow. Rebecca Vaughan RN/LUCI Discharge Planning/Care Management CM Discharge Assessment Start: 12/27/21 09:36 Freq: Status: Active Protocol: Document 12/27/21 09:36 LESLI (Rec: 12/27/21 09:38 [id number]) Discharge Planning Assessment Assigned Drink Mixer Rebecca Vaughan RN/LUCI Advance Directives? No History Provided By Family Member Prior Living Arrangements House Comment Pt visiting from [place] and staying at his daughters home Household Members spouse,family Type of transporation used prior to Relies on Others admit Independent with ADL's Yes Is patient alert and oriented? Yes DME Already Rented / Owned Cane Discharge Plan Home Referrals Initiated None needed Additional Comment At this time. Whiteboard Updated in Patient Room with Yes name and ext. # of Drink Mixer Comment Instructed to call. Provided contact info to daughter as well Review Status In Process Please Provide Date Initial DC 12/27/21 Assessment Was Performed Next Review Type Continued Stay Review
[2021-12-27] MEDS: AMIODARONE 200 MG TABLET PO ×2 (11:14→20:53)
[2021-12-27] MEDS: ACETAMINOPHEN 325 MG TABLET 650 MG PO (12:18)
[2021-12-27] MEDS: MORPHINE 2 MG/ML INJ IV ×3 (12:19→20:51)
--- NOTE | 2021-12-27 12:30 | DI.RAD.S_ITS ---
PROCEDURE: XR ACUTE ABDOMEN SERIES INDICATIONS: worsening abd distension and shortness of breath, reassess TECHNIQUE: One view chest and two views of the abdomen were acquired. COMPARISON: [facility], CT, CT ABDOMEN PELVIS W CON, 12/27/2021, 3:01[facility], CR, XR ACUTE ABDOMEN SERIES, 12/27/2021, 2:35. FINDINGS: Surgical changes and devices: Postsurgical changes of prostatectomy and distal clavicle resection of the right shoulder. Chest: Stable appearance of small left-sided pleural effusion with adjacent left basilar atelectasis. No pneumoperitoneum. Abdomen: Bowel gas pattern is nonobstructed with air noted throughout the large bowel extending into the rectum. A few mildly prominent loops of air-filled small bowel. Air-filled stomach with air-fluid level. No suspicious calcifications. Visualized solid organ contours appear normal. Bones: Degenerative changes of the spine, hips, and shoulders. No acute osseous abnormality. IMPRESSION: No evidence of small-bowel obstruction. Dictated by: Jer Lipscomb D.O. on 12/27/2021 at 12:46 Approved by: Jer Lipscomb D.O. on 12/27/2021 at 12:50
[2021-12-27] MEDS: DOCUSATE 100 MG CAPSULE PO ×2 (13:24→20:53)
[2021-12-27] MEDS: polyethylene glycoL 3350 17 GM POWD.PACK PO (13:24)
[2021-12-27] MEDS: BISACODYL 5 MG TABLET PO (13:24)
[2021-12-27] MEDS: SENNOSIDES 8.6 MG TABLET PO (20:52)
[2021-12-27] MEDS: APIXABAN 5 MG TABLET 2.5 MG PO (20:53)
[2021-12-28] VITALS (11 sets, daily range): BP systolic 140–169; BP diastolic 56–68; PULSE 83–95; RESP 14–28; TEMP 36.9–37.4; O2SAT 94–98
[2021-12-28] MEDS: SODIUM CHLORIDE 0.9% 1,000 ML 150 ML IV ×4 (00:50→22:08)
[2021-12-28] MEDS: MORPHINE 2 MG/ML INJ IV ×3 (00:54→20:34)
[2021-12-28 05:18] LABS: Add Manual Diff / Slide Review NO; Basophils Absolute Auto 0 /uL (0-100); Basophils Percent Auto 0.1 % (0-2); Eosinophils Absolute Auto 0 /uL (0-450); Hematocrit 32.5 % (41-53); Hemoglobin 10.3 g/dL (13.5-17.5); Lymphocytes Absolute Auto 900 /uL (1100-4500); Lymphocytes Percent Auto 5.4 % (25-40); Mean Corpuscular HGB Conc 31.8 % (30-36); Mean Corpuscular Hemoglobin 25.8 PG (26-34); Mean Corpuscular Volume 81.1 fL (80-100); Monocytes Absolute Auto 700 /uL (0-900); Monocytes Percent Auto 4.1 % (3-14); Neutrophils Absolute Auto 14700 /uL (1500-7000); Neutrophils Percent Auto 90.4 % (50-75); Platelet Count 230 X10^3/uL (150-400); Red Blood Cell Count 4.01 X10^6/uL (4.5-5.9); Red Cell Distribution Width 18.6 % (11.6-14.8); White Blood Cell Count 16.2 X10^3/uL (4.5-11.0)
[2021-12-28 05:30] LABS: Alanine Aminotransferase 14 IU/L (<50); Albumin 3.2 g/dL (3.5-5.0); Alkaline Phosphatase 44 U/L (38-126); Aspartate Aminotransferase 23 IU/L (17-59); BUN Creatinine Ratio 12.1 (6-22); Bilirubin Total 0.4 mg/dL (0.2-1.3); Blood Urea Nitrogen 26 mg/dL (9-20); Calcium 7.5 mg/dL (8.4-10.2); Carbon Dioxide 20 mmol/L (22-32); Chloride 107 mmol/L (98-107); Estimated Glomerular Filt Rate 31 mL/min (>60); Globulin 3.3 g/dL (1.7-4.1); Glucose 83 mg/dL (80-110); HEMOLYSIS < 15 (0-50); Potassium 4.2 mmol/L (3.4-5.1); Sodium 135 mmol/L (137-145); Total Protein 6.5 g/dL (6.3-8.2)
[2021-12-28 05:34] LABS: Lipase 19 U/L (23-300)
[2021-12-28] MEDS: APIXABAN 5 MG TABLET 2.5 MG PO ×2 (07:51→19:59)
[2021-12-28] MEDS: NIFEdipine 30 MG TAB ER 90 MG PO (07:51)
[2021-12-28] MEDS: PRAVASTATIN 20 MG TABLET PO (07:52)
[2021-12-28] MEDS: predniSONE 5 MG TABLET 10 MG PO (07:52)
[2021-12-28] MEDS: AMIODARONE 200 MG TABLET PO ×2 (07:53→19:59)
[2021-12-28] MEDS: METOPROLOL ER 50 MG TABLET 100 MG PO (07:53)
[2021-12-28] MEDS: cefTRIAXone 1,000 MG in SODIUM CHLORIDE 0.9% 100 ML 200 MG IV (07:54)
--- NOTE | 2021-12-28 16:19 | P.PN_ITS ---
Subjective Subjective Date Patient Seen: 12/28/21 Interval history: He feels improved with his abdominal pain today, had a few very small bowel movements. His creatinine worsened slightly today. No fever, chills, nausea, or vomiting. Exam Vital Signs (past 8 hours): - 12/28/21 10:55 12/28/21 11:51 12/28/21 15:29 Temperature 98.7 F 98.8 F Pulse Rate 94 H 94 H Respiratory Rate 18 22 Blood Pressure 151/61 H 144/62 H Pulse Oximetry 98 96 Oxygen Delivery Method Nasal Cannula Oxygen Flow Rate 1.5 0 Oxygen Delivery Method Nasal Cannula Oxygen Flow Rate 0 Narrative Exam Narrative: General:? Patient is well developed and well nourished, in no distress at this time. HEENT:? Normocephalic, atraumatic, extraocular muscles intact, oral pharynx is clear and mucous membranes are moist. Neck: supple and symmetric, trachea is midline, no cervical adenopathy. Negative for JVD Chest:? Normal AP diameter and contour without kyphoscoliosis, no tachypnea, equal chest rise bilaterally. Lungs:? CTA b/l no wheezing rhonchi or rales. Cardio:?RRR no m/r/g. Abdomen: soft, mild distension, minimal tenderness R > L and lower > upper. Musculoskeletal:? Muscle strength and tone are equal within normal limits, no deformity. Extremities: No edema or joint effusions. No cyanosis or clubbing. Skin:? Pale,? Warm to touch,dry and intact without rashes, ulcerations or petechiae.? Neuro:? Alert and orientated x3,? sensation to touch intact in all extremities, no gross deficits noted of cranial nerves. Psych:? Patient has a well-kept appearance, appropriate affect, mental status attitude thought context and judgment are appropriate for age. Objective Labs Result Diagrams: 12/28/21 05:01 12/28/21 05:01 Labs: Laboratory Results - last 24 hr 12/28/21 12/28/21 12/28/21 05:01 05:01 05:01 WBC 16.2 H RBC 4.01 L Hgb 10.3 L Hct 32.5 L MCV 81.1 MCH 25.8 L MCHC 31.8 RDW 18.6 H Plt Count 230 Neut % (Auto) 90.4 H Lymph % (Auto) 5.4 L [place] % (Auto) 4.1 Eos % (Auto) 0.0 L Baso % (Auto) 0.1 Neut # (Auto) 70038 H Lymph # (Auto) 900 L [place] # (Auto) 700 Eos # (Auto) 0 Baso # (Auto) 0 Sodium 135 L Potassium 4.2 Chloride 107 Carbon Dioxide 20 L BUN 26 H Creatinine 2.14 H Estimated GFR 31 L BUN/Creatinine Ratio 12.1 Glucose 83 Calcium 7.5 L Total Bilirubin 0.4 AST 23 ALT 14 Alkaline Phosphatase 44 Total Protein 6.5 Albumin 3.2 L Globulin 3.3 Albumin/Globulin Ratio 1.0 Lipase 19 L D PFSH Medical History (Updated 12/27/21 @ 08:56 by Antoinette Jackson RN) Afib Diabetes mellitus Hydronephrosis of right kidney Hyperlipidemia Hypertension Social History household members: spouse and family Smoking Status: Never smoker Assessment & Plan Assessment & Plan narrative: This is an 81-year-old male with PMH of metastatic prostate cancer, DM2, HTN admitted with abdominal pain and acute kidney injury. Abdominal pain, present on admission. Active. - The differential remains broad with possible viral gastroenteritis, isolated colitis, pancreatitis, ureterolithiasis, cystitis and pyelonephritis. -the CT scan raises several possibilities and the microscopic hematuria suggests a urinary source. though urine cultures are negative. -lipase was within normal limits. -possible constipation as the cause as well, continue laxitive therapy. -continue cefepime given fever, though cultures negative. Will discontinue vancomycin today. -consider repeat CT tomorrow if no significant improvement. Lactic acidosis, present on admission. Active. -lactic acid level 2.8 on admission -secondary to acute abdominal process with gastroenteritis/urinary source suspected. -continue IV fluid resuscitation Microscopic hematuria, present on admission. Active. -CT scan suggests low-grade cystitis, right hydronephrosis and UPJ inflammation changes. -no signs of ureteral lithiasis on CT scan or neoplasm. -ED discussed this with Urology who did not feel there was an acute process for them to be involved with so far. acute kidney injury, present on admission. Active. -creatinine is 1.5 with unknown baseline and possible CKD, worsened to 2.[address] with R hydronephrosis but no obvious obstruction as discussed above. -continue IV fluid resuscitation and follow. -consider kidney US or repeat CT tomorrow if worsening kidney function, also depending on patient's symptoms. Type 2 diabetes, chronic -glucose 181 on admission -probable diabetes mellitus, to be clarified today as his medication list arrives and more information is found. -follow blood sugars Metastatic prostate cancer - patient with known metastatic prostate cancer with mets to bone. He has multiple sclerotic lesions noted on CT. HTN - continue home medications chronic atrial fibrillation - continue home medications and apixaban. Lovenox for DVT prevention His daughter Prabha Hopper is his backup decision maker. Code: School Lunch Manager Spent With Patient Critical Care time: I spent a total of [] minutes of critical care time on this patient's care today; this time is exclusive of procedural time.
[2021-12-28] MEDS: DOCUSATE 100 MG CAPSULE PO (19:58)
[2021-12-28] MEDS: SENNOSIDES 8.6 MG TABLET PO (19:59)
--- NOTE | 2021-12-28 20:39 | PC.NURSE ---
Pt c/o shortness of breath on 2 L NC sating in the mid 90's. Lungs are clear with some faint wheezing, RT called and at the bedside. No s/s of fluid overload, Morphine IVP given.
[2021-12-29] VITALS (9 sets, daily range): BP systolic 136–179; BP diastolic 58–78; PULSE 86–130; RESP 16–18; TEMP 36.2–37.1; O2SAT 94–98
--- NOTE | 2021-12-29 | DI.CT.S_ITS ---
PROCEDURE: CT IVP A/P W/WO INDICATIONS: follow up abdominal CT, ? obstruction or calyceal rupture TECHNIQUE: Optional 5 mm thick noncontrast images acquired from the diaphragm to the symphysis pubis. After the administration of intravenous contrast, 5 mm thick images acquired from the diaphragm to the symphysis pubis after a 10-minute delay. 2 mm thick coronal and sagittal reformats were then performed of the kidneys and ureters. For radiation dose reduction, the following was used: automated exposure control, adjustment of mA and/or kV according to patient size. COMPARISON: [facility], CT, CT ABDOMEN PELVIS W CON, 12/27/2021, 3:01. [facility], CT, CT ABDOMEN PELVIS WO CON, 12/29/2021, 10:58. FINDINGS: Image quality: Excellent. Lung bases: Small bilateral pleural effusions, increased. Bibasilar compressive atelectasis. Gynecomastia. Urinary system: There is excreted contrast outside of the right kidney and in the right pericolic gutter, (3/110). Overall there is a small volume of fluid. There is [id number] right kidney hydronephrosis. Possible small filling defects within the right kidney upper calices, (3/89). The proximal right ureter is prominent. The mid and distal right ureter does not opacify well with contrast. The left ureter is not dilated. No filling defect is identified. No left hydronephrosis. Small cysts in the right kidney. Other solid organs: Liver is within normal limits in size. Small well-circumscribed hepatic hypodensities which have the appearance of benign cysts. Gallbladder not significantly distended. Vicarious excretion of contrast. Small stones within the cystic duct are suspected, (3/72). Biliary system is non dilated. Pancreas enhances normally. No splenomegaly. No adrenal nodules. Peritoneum and bowel: Prominent loops of small bowel in the left abdomen. No discrete transition point. The appendix is not identified. No free fluid or air. Nodes and vessels: No retroperitoneal or mesenteric adenopathy by size criteria. Aorta and inferior vena cava are normal in size. Circumferential calcified atherosclerotic plaque. Abdominal wall: No ventral hernias. Pelvis: Small amount of fluid tracking into the pelvis. No inguinal hernias or adenopathy. Clips in the pelvis. Bones: Sclerosis at L1 and L2. Several additional sclerotic foci. No vertebral body compression fractures. Bilateral L5 pars defect. IMPRESSION: 1. Right kidney calyceal/forniceal rupture with leakage of excreted urine into the right perirenal space. [id number] right hydronephrosis. The proximal right ureter is prominent. Possible this filling defects within the right kidney superior calices. This could represent debris, hemorrhage, or neoplasm. 2. Sclerotic osseous lesions suspicious for metastatic disease. Possibly prostate cancer. 3. Probable stones within the cystic duct. 4. Prominent loops of small bowel. No discrete transition point to suggest obstruction. Developing ileus could have this appearance. Dictated by: Ceasar Dang M.D. on 12/29/2021 at 16:12 Approved by: Ceasar Dang M.D. on 12/29/2021 at 16:30
[2021-12-29] MEDS: MORPHINE 2 MG/ML INJ IV ×4 (01:49→15:54)
[2021-12-29] MEDS: SODIUM CHLORIDE 0.9% 1,000 ML 50 ML IV ×2 (02:16→11:30)
[2021-12-29] MEDS: METOPROLOL ER 50 MG TABLET 100 MG PO (05:49)
[2021-12-29 07:50] LABS: Add Manual Diff / Slide Review NO; Basophils Absolute Auto 0 /uL (0-100); Basophils Percent Auto 0.1 % (0-2); Eosinophils Absolute Auto 0 /uL (0-450); Eosinophils Percent Auto 0.1 % (2-4); Hematocrit 30.3 % (41-53); Lymphocytes Absolute Auto 500 /uL (1100-4500); Mean Corpuscular HGB Conc 32.9 % (30-36); Mean Corpuscular Hemoglobin 26.5 PG (26-34); Mean Corpuscular Volume 80.4 fL (80-100); Monocytes Absolute Auto 900 /uL (0-900); Monocytes Percent Auto 5.7 % (3-14); Neutrophils Absolute Auto 14300 /uL (1500-7000); Neutrophils Percent Auto 91.1 % (50-75); Platelet Count 216 X10^3/uL (150-400); Red Blood Cell Count 3.77 X10^6/uL (4.5-5.9); Red Cell Distribution Width 18.4 % (11.6-14.8); White Blood Cell Count 15.7 X10^3/uL (4.5-11.0)
[2021-12-29 08:12] LABS: HEMOLYSIS < 15 (0-50); Potassium 3.7 mmol/L (3.4-5.1)
[2021-12-29 08:13] LABS: BUN Creatinine Ratio 13.3 (6-22); Blood Urea Nitrogen 22 mg/dL (9-20); Calcium 7.6 mg/dL (8.4-10.2); Carbon Dioxide 19 mmol/L (22-32); Chloride 109 mmol/L (98-107); Estimated Glomerular Filt Rate 42 mL/min (>60); Glucose 140 mg/dL (80-110); Sodium 137 mmol/L (137-145)
[2021-12-29] MEDS: cefTRIAXone 1,000 MG in SODIUM CHLORIDE 0.9% 100 ML 200 MG IV (08:30)
[2021-12-29] MEDS: ACETAMINOPHEN 325 MG TABLET 650 MG PO (08:41)
[2021-12-29] MEDS: AMIODARONE 200 MG TABLET PO ×2 (08:42→21:22)
[2021-12-29] MEDS: NIFEdipine 30 MG TAB ER 90 MG PO (08:42)
[2021-12-29] MEDS: predniSONE 5 MG TABLET 10 MG PO (08:43)
[2021-12-29] MEDS: DOCUSATE 100 MG CAPSULE PO ×2 (08:43→21:22)
[2021-12-29] MEDS: APIXABAN 5 MG TABLET 2.5 MG PO (08:43)
[2021-12-29] MEDS: PRAVASTATIN 20 MG TABLET PO (08:43)
[2021-12-29] MEDS: polyethylene glycoL 3350 17 GM POWD.PACK PO (08:44)
--- NOTE | 2021-12-29 09:15 | DI.CT.S_ITS ---
PROCEDURE: CT ABDOMEN PELVIS WO CON INDICATIONS: worsening abdominal distension TECHNIQUE: After the administration of oral contrast, 5 mm thick sections acquired from the diaphragms to the symphysis. 5 mm coronal and sagittal reformats were performed. For radiation dose reduction, the following was used: automated exposure control, adjustment of mA and/or kV according to patient size. COMPARISON: [facility], CT, CT ABDOMEN PELVIS W CON, 12/27/2021, 3:01. FINDINGS: Image quality: Excellent. ABDOMEN: Lung bases: There is a small new right pleural effusion and slight increased left pleural effusion when compared with the prior CT dated December 27, 2021. There is increased compressive atelectasis at the left lung base. The heart is enlarged as before. No pericardial effusion. Solid organs: Liver is normal in size. Gallbladder demonstrates vicarious excretion of contrast. . Pancreas is normal in size. Spleen is normal in size. No adrenal nodules. There is increased right perinephric fat stranding and slightly decreased left perinephric fat stranding when compared with the prior study. There is mild right hydronephrosis which is likely unchanged from the prior study. No right ureterolithiasis. There is periureteral fat stranding only visualized within the superior aspect of the right ureter. The downstream ureter has a normal appearance. No left ureteral calculi or periureteral fat stranding. Peritoneum and bowel: Bowel loops demonstrate normal wall thickness and caliber. No pneumoperitoneum. There is a small amount of low-density pelvic ascites, fluid tracking along the right pericolic gutter, and a small amount of perihepatic free fluid all of which are new when compared with the prior study. Nodes and vessels: No retroperitoneal or mesenteric adenopathy by size criteria. Aorta and inferior vena cava are normal in size. There are scattered atheromatous calcifications throughout the aorta and iliac arteries bilaterally. Miscellaneous: No ventral hernias. PELVIS: Genitourinary: Bladder wall thickness is normal. Miscellaneous: No inguinal hernias or adenopathy. Bones: A sclerotic focus is partially visualized within the posterior aspect of the left 8th rib. Sclerotic foci are redemonstrated within L1, T12, T11, T10 and T8 suspicious for sclerotic bony metastases. No compression deformities. IMPRESSION: 1. Increased right perinephric fat stranding, persistent mild right hydronephrosis, and proximal periureteral fat stranding. No radiopaque ureteral calculus is visualized. These findings are suspicious for a partially obstructing , non radiopaque right ureteral mass. Urothelial neoplasm could be included in the differential diagnosis. Findings also suggest right caliceal rupture. If further characterization is warranted, CT IVP could be used to evaluate for ureteral mass. 2. Increased intra-abdominal ascites which may be secondary to caliceal rupture or generalized fluid overload. There is a slight increase in the bilateral pleural effusions when compared with the prior study as well. 3. Probable sclerotic bone metastases redemonstrated. Dictated by: Mary Chilel M.D. on 12/29/2021 at 11:05 Approved by: Mary Chilel M.D. on 12/29/2021 at 11:14
--- NOTE | 2021-12-29 13:45 | P.PN_ITS ---
Subjective Subjective Date Patient Seen: 12/29/21 Interval history: Worsened abdominal pain and distension, hard to take a breath in today. CT abdomen repeated which showed worsened perinephric stranding, and some free fluid with concern for possible mass causing obstruction or calyceal rupture. Discussed with urology, whom recommended CT IV pyelogram as was recommended by radiologist as well. Exam Vital Signs (past 8 hours): - 12/29/21 05:49 12/29/21 07:46 12/29/21 08:49 Temperature 98.0 F Pulse Rate 130 H 110 H Respiratory Rate 16 Blood Pressure 136/58 L 138/66 Pulse Oximetry 95 95 Oxygen Delivery Method Nasal Cannula Oxygen Flow Rate 2 2 12/29/21 07:00 12/29/21 11:00 Temperature 97.2 F L Pulse Rate 86 Respiratory Rate 17 Blood Pressure 157/69 H Pulse Oximetry 98 Oxygen Delivery Method Nasal Cannula Oxygen Flow Rate 2 Fraction of Inspired Oxygen 28 Oxygen Delivery Method Nasal Cannula Oxygen Flow Rate 2 Narrative Exam Narrative: General:? Patient is well developed and well nourished, in no distress at this time. HEENT:? Normocephalic, atraumatic, extraocular muscles intact, oral pharynx is clear and mucous membranes are moist. Neck: supple and symmetric, trachea is midline, no cervical adenopathy. Negative for JVD Chest:? Normal AP diameter and contour without kyphoscoliosis, no tachypnea, equal chest rise bilaterally. Lungs:? CTA b/l no wheezing rhonchi or rales. Cardio:?RRR no m/r/g. Abdomen: soft, moderate distension, minimal tenderness R > L and lower > upper. Musculoskeletal:? Muscle strength and tone are equal within normal limits, no deformity. Extremities: No edema or joint effusions. No cyanosis or clubbing. Skin:? Pale,? Warm to touch,dry and intact without rashes, ulcerations or petechiae.? Neuro:? Alert and orientated x3,? sensation to touch intact in all extremities, no gross deficits noted of cranial nerves. Psych:? Patient has a well-kept appearance, appropriate affect, mental status attitude thought context and judgment are appropriate for age. Objective Labs Result Diagrams: 12/29/21 07:25 12/29/21 07:25 Labs: Laboratory Results - last 24 hr 12/29/21 12/29/21 07:25 07:25 WBC 15.7 H RBC 3.77 L Hgb 10.0 L Hct 30.3 L MCV 80.4 MCH 26.5 MCHC 32.9 RDW 18.4 H Plt Count 216 Neut % (Auto) 91.1 H Lymph % (Auto) 3.0 L [place] % (Auto) 5.7 Eos % (Auto) 0.1 L Baso % (Auto) 0.1 Neut # (Auto) 61438 H Lymph # (Auto) 500 L [place] # (Auto) 900 Eos # (Auto) 0 Baso # (Auto) 0 Sodium 137 Potassium 3.7 Chloride 109 H Carbon Dioxide 19 L BUN 22 H Creatinine 1.65 H Estimated GFR 42 L BUN/Creatinine Ratio 13.3 Glucose 140 H Calcium 7.6 L PFSH Medical History (Updated 12/27/21 @ 08:56 by Antoinette Jackson RN) Afib Diabetes mellitus Hydronephrosis of right kidney Hyperlipidemia Hypertension Social History household members: spouse and family Smoking Status: Never smoker Assessment & Plan Assessment & Plan narrative: This is an 81-year-old male with PMH of metastatic prostate cancer, DM2, HTN admitted with abdominal pain and acute kidney injury. Abdominal pain, present on admission. Active. - The differential remains broad with possible viral gastroenteritis, isolated colitis, cystitis and pyelonephritis. Possibly complicated by ureteral obstruction as seen on CT imaing. -the CT scan raises several possibilities and the microscopic hematuria suggests a urinary source. though urine cultures are negative. -lipase was within normal limits. -possible constipation as the cause as well, though stool burden improved on CT today with worsening pain. -continue cefepime given fever, though cultures negative. Discontinued vancomycin today. -Repeat CT on 12/29 for worsening pain showed persistent R hydronephrosis, some concern for mass lesion leading to obstruction or calyceal rupture given free fluid. Discussed with urology, thought unlikely given CT appearance but given fl uid recommended CT IV pyelogram which is pending. Lactic acidosis, present on admission. Active. -lactic acid level 2.8 on admission -secondary to acute abdominal process with gastroenteritis/urinary source suspected. -continue IV fluid resuscitation for now Microscopic hematuria, present on admission. Active. -CT scan suggests low-grade cystitis, right hydronephrosis and UPJ inflammation changes. -no signs of ureteral lithiasis on CT scan or neoplasm. -may be related to obstructive process (mass, etc) or infectious process. Unclear cause at this time. acute kidney injury, present on admission. Active. -creatinine is 1.5 with unknown baseline and possible CKD, worsened to 2.14 then improved to 1.[address] with R hydronephrosis but no obvious obstruction as discussed above. Pending repeat CT IV pyelogram today. 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 He has multiple sclerotic lesions noted on CT. HTN - continue home medications chronic atrial fibrillation - continue home medications and apixaban. Lovenox for DVT prevention His daughter Prabha Hopper is his backup decision maker. Code: Director Global Development Spent With Patient Critical Care time: I spent a total of [] minutes of critical care time on this patient's care today; this time is exclusive of procedural time.
--- NOTE | 2021-12-29 18:12 | PC.NURSE ---
Pt A&Ox3, Slightly hypertensive, HR 90's - afib on telemetry. He calls appropriately for assistance and is slightly unsteady on his feet. Noted shallow breaths due to abdominal pain, he continuously rates pain 8-10/10 to abdomen, although intermittently napping after prn Morphine at times. Pt with belching,and medicated x1 with PRN zofran for nausea. He is voiding clear yellow light urine without difficulty. CT scan completed and then patient went down for 2nd CT scan. Pt is ordered to be NPO, with IVF changing to LR this evening. BG 160 this evening with q 6 hour accuchecks. Continuous monitoring. He complains of pain increasing, requesting morphine 2 hours after dose MD notified and increased pain medication dosing.
[2021-12-29] MEDS: LACTATED RINGERS 500 ML 25 ML IV (18:30)
[2021-12-29] MEDS: MORPHINE 4 MG/ML INJ IV ×2 (18:44→22:45)
[2021-12-29] MEDS: CEFAZOLIN 2 GM IN 0.9 % NACL 100 ML IV (18:45)
[2021-12-29] MEDS: SENNOSIDES 8.6 MG TABLET PO (21:24)
[2021-12-30] VITALS (16 sets, daily range): BP systolic 123–174; BP diastolic 53–83; PULSE 78–98; RESP 13–21; TEMP 36.1–37.1; O2SAT 91–98; BMI 2789.7
[2021-12-30] MEDS: ONDANSETRON 4 MG/2 ML INJ IV ×3 (00:20→15:11)
[2021-12-30] MEDS: MORPHINE 4 MG/ML INJ IV ×2 (02:39→06:54)
[2021-12-30 07:28] LABS: Add Manual Diff / Slide Review NO; Basophils Absolute Auto 0 /uL (0-100); Basophils Percent Auto 0.1 % (0-2); Eosinophils Absolute Auto 0 /uL (0-450); Eosinophils Percent Auto 0.1 % (2-4); Hematocrit 30.7 % (41-53); Hemoglobin 10.1 g/dL (13.5-17.5); Lymphocytes Absolute Auto 500 /uL (1100-4500); Lymphocytes Percent Auto 3.8 % (25-40); Mean Corpuscular Hemoglobin 26.3 PG (26-34); Mean Corpuscular Volume 79.6 fL (80-100); Monocytes Absolute Auto 1400 /uL (0-900); Neutrophils Absolute Auto 12200 /uL (1500-7000); Platelet Count 238 X10^3/uL (150-400); Red Blood Cell Count 3.86 X10^6/uL (4.5-5.9); Red Cell Distribution Width 18.3 % (11.6-14.8); White Blood Cell Count 14.2 X10^3/uL (4.5-11.0)
[2021-12-30 07:39] LABS: BUN Creatinine Ratio 12.9 (6-22); Blood Urea Nitrogen 17 mg/dL (9-20); Calcium 8.5 mg/dL (8.4-10.2); Carbon Dioxide 24 mmol/L (22-32); Chloride 106 mmol/L (98-107); Estimated Glomerular Filt Rate 55 mL/min (>60); Glucose 124 mg/dL (80-110); HEMOLYSIS < 15 (0-50); Potassium 3.7 mmol/L (3.4-5.1); Sodium 139 mmol/L (137-145)
--- NOTE | 2021-12-30 07:50 | P.CONS_ITS ---
History of Present Illness Consult details Date Patient Seen: 12/30/21 Time Patient Seen: 07:20 Chief complaint: ABD PAIN Reason for consult: Right hydronephrosis Narrative: The patient is an 81-year-old the gentleman visiting his daughter from his home in [place] who presented to [facility] ED with a 3 day history of increasing nausea, vomiting, and generalized abdominal pain. Initial evaluation revealed microscopic hematuria without bacteria or evidence suggesting UTI. He presented with a leukocytosis and lactic acidosis. Creatinine on presentation for 1.50 without known baseline. Noncontrast CT on 12/27/2021 demonstrated mild right hydronephrosis and mild proximal siri ureteral stranding of the fat. Patient has known history of metastatic prostate cancer to bone. Numerous sclerotic bony lesions were seen on imaging consistent with known history. During his hospital stays continued to have generalized abdominal pain and imaging consistent with ileus. On 07/01/2021 creatinine ronald to 2.14. However, repeat creatinine this morning shows declined to 1.32, perhaps reflecting achieving more euvolemic status. This morning he continues to complain of belching and small amounts of clear emesis. He has had not evidence of fever pre admission or during admission. Repeat CT scan 12/29/2021 with contrast revealed extravasation presumably due to calyceal rupture and some suggestion of urothelial irregularity in the renal pelvis and proximal ureter. Meds Home Medications and Allergies Home Medications Medication Instructions Recorded Confirmed Type abiraterone 250 mg tablet (Zytiga) 1,000 mg PO DAILY 12/27/21 12/27/21 History acetaminophen 325 mg capsule 325 mg PO QID PRN Pain (Scale 12/27/21 12/27/21 History (Tylenol) Score 1-3) amiodarone 200 mg tablet 200 mg PO BID 12/27/21 12/27/21 History apixaban 5 mg tablet 5 mg PO BID 12/27/21 12/27/21 History ascorbic acid (vitamin C) 500 mg 500 mg PO DAILY 12/27/21 12/27/21 History tablet benzonatate 200 mg capsule 200 mg PO TID PRN Cough 12/27/21 12/27/21 History clobetasol 0.05 % topical cream 1 applic topical BID PRN rash on 12/27/21 08/11/12 History palms empagliflozin 25 mg tablet 25 mg PO QAM 12/27/21 12/27/21 History metoprolol succinate 100 mg 100 mg PO DAILY 12/27/21 12/27/21 History tablet,extended release 24 hr multivitamin with minerals-folic 1 tab PO DAILY 12/27/21 12/27/21 History acid 0.4 mg tablet nifedipine 90 mg tablet,extended 90 mg PO DAILY 12/27/21 12/27/21 History release pravastatin 20 mg tablet 20 mg PO DAILY 12/27/21 12/27/21 History prednisone 10 mg tablet 10 mg PO DAILY 12/27/21 12/27/21 History sitagliptin 50 mg-metformin ER 2 tab PO DAILY 12/27/21 12/27/21 History 1,000 mg tablet,extended release 24h mp (Janumet XR) Allergies Allergy/AdvReac Type Severity Reaction Status Date / Time No Known Drug Allergies Allergy Verified 12/27/21 02:39 Exam Vital Signs (past 8 hours): - 12/30/21 00:24 12/30/21 04:24 Temperature 98.6 F 98.7 F Pulse Rate 98 H 95 H Respiratory Rate 16 18 Blood Pressure 174/68 H 169/82 H Pulse Oximetry 98 96 Oxygen Flow Rate 2 2 Fraction of Inspired Oxygen 28 Oxygen Delivery Method Nasal Cannula Oxygen Flow Rate 2 Narrative Exam Narrative: He is a well-developed, moderately over nourished elderly fellow in mild distress. Head/neck-sclera clear and pupils are round and equal. No visible evidence of adenopathy JVD. Chest-equal and unlabored expansion bilaterally. Heart-normal sinus rhythm. Abdomen-distended and mildly firm and tender generalized without localizing tenderness, guarding, or rebound. Objective Labs Result Diagrams: 12/30/21 06:55 12/30/21 06:55 Labs: Laboratory Results - last 24 hr 12/29/21 12/29/21 12/30/21 07:25 07:25 06:55 WBC 15.7 H 14.2 H RBC 3.77 L 3.86 L Hgb 10.0 L 10.1 L Hct 30.3 L 30.7 L MCV 80.4 79.6 L MCH 26.5 26.3 MCHC 32.9 33.0 RDW 18.4 H 18.3 H Plt Count 216 238 Neut % (Auto) 91.1 H 86.0 H Lymph % (Auto) 3.0 L 3.8 L [place] % (Auto) 5.7 10.0 Eos % (Auto) 0.1 L 0.1 L Baso % (Auto) 0.1 0.1 Neut # (Auto) 61565 H 53190 H Lymph # (Auto) 500 L 500 L [place] # (Auto) 900 1400 H Eos # (Auto) 0 0 Baso # (Auto) 0 0 Sodium 137 Potassium 3.7 Chloride 109 H Carbon Dioxide 19 L BUN 22 H Creatinine 1.65 H Estimated GFR 42 L BUN/Creatinine Ratio 13.3 Glucose 140 H Calcium 7.6 L 12/30/21 06:55 WBC RBC Hgb Hct MCV MCH MCHC RDW Plt Count Neut % (Auto) Lymph % (Auto) [place] % (Auto) Eos % (Auto) Baso % (Auto) Neut # (Auto) Lymph # (Auto) [place] # (Auto) Eos # (Auto) Baso # (Auto) Sodium 139 Potassium 3.7 Chloride 106 Carbon Dioxide 24 BUN 17 Creatinine 1.32 H Estimated GFR 55 L BUN/Creatinine Ratio 12.9 Glucose 124 H Calcium 8.5 PFSH Medical History Afib Diabetes mellitus Hydronephrosis of right kidney Hyperlipidemia Hypertension Social History household members: spouse and family Tobacco & Substance Use Smoking Status: Never smoker Assessment & Plan Assessment & Plan narrative: Assessment: 1. Right hydronephrosis and contrast CT evidence of urinary extravasation presumably due to calyceal rupture. No evidence of stone although he may have passed a small stone prior to presentation. However, clinical course should have improved rather than remained unchanged or slightly worsened since admission. Differential includes urothelial neoplasm, tuberculosis, etc.. Plan: 1. Discussion, and informed consent this morning for CYSTOSCOPY/RIGHT RETROGRADE PYELOGRAM/PLACEMENT RIGHT URETERAL STENT. I explained that he will also awakened with a Trent catheter to promote a low-pressure management system to allow and promote calyceal healing. He likely will require any other on a diagnostic ureteroscopy in the future. Question remains whether that will be conducted locally or upon patient's return to his home. Time Spent With Patient Critical Care time: I spent a total of [] minutes of critical care time on this patient's care today; this time is exclusive of procedural time.
--- NOTE | 2021-12-30 08:15 | PC.NURSE ---
Addendum entered by Yamile Marin R.N. 12/30/21 18:51: Patient given zofran earlier, is aware that patient has been spitting up bile colored drainage. Down to surgery around 1600 Original Note: Assess- Patient is alert and oriented x4, he speaks tajik well. Abdomen is distended and showed ascites on scan. He was just given morphine at around 0650 with zofran. He states that he is comfortable at this time. IVF infusing and patient is comfortable. He is NPO and will go to surgery for a stent later this evening some time.
[2021-12-30] MEDS: DOCUSATE 100 MG CAPSULE PO (08:38)
[2021-12-30] MEDS: NIFEdipine 30 MG TAB ER 90 MG PO (08:38)
[2021-12-30] MEDS: METOPROLOL ER 50 MG TABLET 100 MG PO (08:38)
[2021-12-30] MEDS: PRAVASTATIN 20 MG TABLET PO (08:38)
[2021-12-30] MEDS: AMIODARONE 200 MG TABLET PO (08:38)
[2021-12-30] MEDS: cefTRIAXone 1,000 MG in SODIUM CHLORIDE 0.9% 100 ML 200 MG IV (08:38)
[2021-12-30] MEDS: LACTATED RINGERS 1,000 ML 42 ML IV (16:14)
--- NOTE | 2021-12-30 16:26 | P.PN_ITS ---
Subjective Subjective Date Patient Seen: 12/30/21 Interval history: Worsened abdominal pain and distension, hard to take a breath in today. Likely with ileus in addition to R hydronephrosis with possible calyceal rupture. Exam Vital Signs (past 8 hours): - 12/30/21 10:49 12/30/21 12:00 12/30/21 15:57 Temperature 98.6 F 98.4 F Pulse Rate 88 Respiratory Rate 18 17 Blood Pressure 128/83 142/57 H Pulse Oximetry 94 92 94 Oxygen Delivery Method Nasal Cannula Oxygen Flow Rate 1 2 2 12/30/21 15:59 Temperature 98.6 F Pulse Rate 97 H Respiratory Rate 20 Blood Pressure 159/73 H Pulse Oximetry 95 Oxygen Delivery Method Room Air Oxygen Flow Rate Fraction of Inspired Oxygen 28 Oxygen Delivery Method Room Air Oxygen Flow Rate 2 Narrative Exam Narrative: General:? Patient is well developed and well nourished, in no distress at this time. Appears mildly ill and more lethargic today. HEENT:? Normocephalic, atraumatic, extraocular muscles intact, oral pharynx is clear and mucous membranes are moist. Neck: supple and symmetric, trachea is midline, no cervical adenopathy. Negative for JVD Chest:? Normal AP diameter and contour without kyphoscoliosis, no tachypnea, equal chest rise bilaterally. Lungs:? CTA b/l no wheezing rhonchi or rales. Cardio:?RRR no m/r/g. Abdomen: soft, moderate but still worsening distension, worsened tenderness on the R, still mild. Musculoskeletal:? Muscle strength and tone are equal within normal limits, no deformity. Extremities: No edema or joint effusions. No cyanosis or clubbing. Skin:? Pale,? Warm to touch,dry and intact without rashes, ulcerations or petechiae.? Neuro:? Alert and orientated x3,? sensation to touch intact in all extremities, no gross deficits noted of cranial nerves. Psych:? Patient has a well-kept appearance, appropriate affect, mental status attitude thought context and judgment are appropriate for age. Objective Labs Result Diagrams: 12/30/21 06:55 12/30/21 06:55 Labs: Laboratory Results - last 24 hr 12/30/21 12/30/21 06:55 06:55 WBC 14.2 H RBC 3.86 L Hgb 10.1 L Hct 30.7 L MCV 79.6 L MCH 26.3 MCHC 33.0 RDW 18.3 H Plt Count 238 Neut % (Auto) 86.0 H Lymph % (Auto) 3.8 L [place] % (Auto) 10.0 Eos % (Auto) 0.1 L Baso % (Auto) 0.1 Neut # (Auto) 34032 H Lymph # (Auto) 500 L [place] # (Auto) 1400 H Eos # (Auto) 0 Baso # (Auto) 0 Sodium 139 Potassium 3.7 Chloride 106 Carbon Dioxide 24 BUN 17 Creatinine 1.32 H Estimated GFR 55 L BUN/Creatinine Ratio 12.9 Glucose 124 H Calcium 8.5 PFSH Medical History Afib Diabetes mellitus Hydronephrosis of right kidney Hyperlipidemia Hypertension Social History household members: spouse and family Smoking Status: Never smoker alcohol intake: never Assessment & Plan Assessment & Plan narrative: This is an 81-year-old male with PMH of metastatic prostate cancer, DM2, HTN admitted with abdominal pain and acute kidney injury. Abdominal pain, present on admission. Active. R hydronephrosis with calyceal rupture and ileus. -Repeat CT on 12/29 for worsening pain showed persistent R hydronephrosis, some concern for mass lesion leading to obstruction or calyceal rupture given free fluid. Discussed with urology, thought unlikely given CT appearance but given fluid recommended CT IV pyelogram which showed probable rupture. There is also dilated small bowel without obstruction, likely ileus possibly in setting of calyceal rupture or opiate use. -Appreciate consultation by Dr. Rankin, plan for urologic interventions, stent placement today -hidalgo will remain in place after surgery to maintain a low pressure state to allow calyceal healing. -consider NG tube if konrad emesis for ileus Lactic acidosis, present on admission. Active. -lactic acid level 2.8 on admission -secondary to acute abdominal process with gastroenteritis/urinary source suspected. -continue IV fluid resuscitation for now Microscopic hematuria, present on admission. Active. -CT scan suggests low-grade cystitis, right hydronephrosis and UPJ inflammation changes. -no signs of ureteral lithiasis on CT scan but possible neoplasm after pyelogram noted above. -may be related to obstructive process (mass, etc) or infectious process. Unclear cause at this time, will likely know more after urological interventions. -remains on ceftriaxone. acute kidney injury, present on admission. Active. -creatinine is 1.5 with unknown baseline and possible CKD, worsened to 2.14 then improved to 1.[address] with R hydronephrosis and possible neoplastic obstr uction. Pending urology interventions today. 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 He has multiple sclerotic lesions noted on CT. HTN - continue home medications chronic atrial fibrillation - continue home medications and apixaban. DVT on apixaban His daughter Prabha Hopper is his backup decision maker. Code: External Grinder Tool Spent With Patient Critical Care time: I spent a total of [] minutes of critical care time on this patient's care today; this time is exclusive of procedural time.
--- NOTE | 2021-12-30 17:17 | PM.PREOP ---
Pre-operative Note COVID-19 Criteria for continued procedure: Expected advancement of disease process, Possibility delay results in more complex future surgery or treatment, Increased loss of function, Continuing or worsening of significant or severe pain, Deterioration of the patient's condition or overall health, Delay expected to result in less-positive ultimate med/surg outcome and Non-surgical alternatives not available or appropriate per current SOC Interval Note History & Physical reviewed/Exam performed by Physician: Yes Changes to H&P: No
[2021-12-30] MEDS: CEFAZOLIN 2 GM IN 0.9 % NACL 100 ML IV (18:10)
--- NOTE | 2021-12-30 18:27 | SUR.OPER ---
Lithotomy on padded OR bed, head on pillow, arms secured on padded arm boards at <90 degrees abduction. Legs secured in padded yellow fins stirrups.
[2021-12-30] MEDS: BELLADONNA/OPIUM SUPPOSITORIES 1 EACH PR (18:30)
[2021-12-30] MEDS: IOPAMIDOL 50 ML VIAL 10 ML INTRAURETH (18:32)
--- NOTE | 2021-12-30 19:00 | P.OP_ITS ---
Operative Date/Time/Diagnoses Date of procedure: 12/30/21 Time of procedure: 18:45 Pre-op diagnosis: Right ureteral obstruction. Post-op diagnosis: same Procedure & Clinicians Procedure: 1. Cystoscopy/dilation bladder neck contracture. 2. Cystoscopy/complicated catheter placement. 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 Right hydronephrosis. 2. Right renal urinary extravasation. 3. VIOLETA. Surgeon: Inocencio Rankin Click Yes if Unassisted: Yes Anesthesia Type: General Operative Notes Findings: 1. Urethra-normal caliber without annular stricture or lesion. 2. External sphincter hypovascular, moderately gaping, radiation changes. Dense membranous urethral stenosis 3. Prostate-either surgically absent or markedly atrophied secondary to radiation effect. Dense stenosis. 4. 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 The pelvic floor and bladder neck were frozen allowing very little movement of the scope despite some attempts to fulcrum the rigid endoscope sheath to the right, to the left, anterior, and posterior. The ureteral orifices were never visualized due to fixation of the pelvic floor and bladder neck and inability to manipulate the scope for adequate visualization. Closure Type: not applicable Specimen(s): none sent Applied: catheter (Eighteen Montenegrin Inupiat tip catheter.) Estimated Blood Loss (mL): 1 Blood products transfused: none Procedure in detail: The patient was positioned supine and was administered general anesthesia. He was then repositioned semi lithotomy and the lower abdomen, genitalia, and groin were prepped and draped in sterile fashion. Twenty-two Montenegrin panendoscope was then passed the lower urinary tract with findings as described above. Only with significant and genital effort was the beak of the scope insinuated into the dense and scarred bladder outlet and then advanced proximally with success. Multiple attempts were made with filling and emptying to visualize ureteral orifices bilaterally attempts to probe and identify location of the right ureteral orifice with a curved tip 0.35 hybrid wire within a 5 Montenegrin pollock catheter was attempted without success. The panendoscope and the 5 Montenegrin [place] catheter were then backloaded off the guidewire. Over the guidewire a 18 [place]grin Inupiat tip catheter was advanced proximally and the bladder contents drained. The balloon was filled to 10 cc and was attached to gravity drainage. Positioning of the Inupiat tip catheter was confirmed fluoroscopically. The patient was then repositioned in supine, was awakened, and then was transferred to [facility] for transport to PACU. Complications: none Post-operative Condition: stable Disposition: PACU Plan for aftercare: 1. Admit to hospitalist service-acute care. 2. Patient will require transfer to a facility capable of interventional radiology and access to the right kidney collecting system percutaneously date
[2021-12-30] MEDS: TETRACAINE/BENZOCAINE/BUTAMBEN (CETACAINE) BOTTLE 1 SPRAY TOP (22:52)
[2021-12-30] MEDS: SODIUM CHLORIDE 0.9% 1,000 ML 100 ML IV (23:39)
[2021-12-31 00:54] VITALS: BP 136/56; PULSE 86; RESP 18; TEMP 36.6; O2SAT 94
[2021-12-31 01:36] VITALS: BP 138/61; PULSE 87; RESP 18; TEMP 36.4; O2SAT 93
[2021-12-31 05:23] LABS: Add Manual Diff / Slide Review NO; Basophils Absolute Auto 0 /uL (0-100); Basophils Percent Auto 0.2 % (0-2); Eosinophils Absolute Auto 100 /uL (0-450); Eosinophils Percent Auto 0.3 % (2-4); Hematocrit 29.8 % (41-53); Hemoglobin 9.6 g/dL (13.5-17.5); Lymphocytes Absolute Auto 500 /uL (1100-4500); Lymphocytes Percent Auto 3.1 % (25-40); Mean Corpuscular HGB Conc 32.3 % (30-36); Mean Corpuscular Hemoglobin 25.8 PG (26-34); Monocytes Absolute Auto 1100 /uL (0-900); Monocytes Percent Auto 7.5 % (3-14); Neutrophils Absolute Auto 13300 /uL (1500-7000); Neutrophils Percent Auto 88.9 % (50-75); Platelet Count 267 X10^3/uL (150-400); Red Blood Cell Count 3.73 X10^6/uL (4.5-5.9); Red Cell Distribution Width 18.8 % (11.6-14.8)
[2021-12-31 05:29] LABS: BUN Creatinine Ratio 18.8 (6-22); Blood Urea Nitrogen 21 mg/dL (9-20); Calcium 8.9 mg/dL (8.4-10.2); Carbon Dioxide 21 mmol/L (22-32); Chloride 110 mmol/L (98-107); Estimated Glomerular Filt Rate > 60 mL/min (>60); Glucose 106 mg/dL (80-110); HEMOLYSIS < 15 (0-50); Potassium 3.4 mmol/L (3.4-5.1); Sodium 145 mmol/L (137-145)
--- NOTE | 2021-12-31 07:29 | PC.NURSE ---
NO Shift Note- Patient arrived back to room via bed from PACU at 1940. Patient arrived back with hidalgo cath and NG tube. NG set up to low intermittant suction as ordered. Patient complains NG tube uncomfortable and is continuously gagging and spitting up due to NG tube. Received order for cetacaine spray. after cetacaine spray was applied patient was finally able to get some sleep without gagging. no complaints of pain. no complaints of nausea. safety measures in place. will continue to monitor.
[2021-12-31 07:40] VITALS: BP 151/59; PULSE 86; RESP 16; TEMP 36; O2SAT 96
--- NOTE | 2021-12-31 08:08 | PM.PN.1 ---
Subjective Subjective Date Patient Seen: 12/31/21 Time Patient Seen: 07:45 Interval history: Patient is postop day 1 status post cystoscopy and dilation bladder neck contracture. See operative note and findings from last evening. NG tube has provided some element decompression and reduced pain. He denies right-sided flank pain. Exam Vital Signs (past 8 hours): - 12/31/21 00:54 12/31/21 01:36 Temperature 97.9 F 97.6 F Pulse Rate 86 87 Respiratory Rate 18 18 Blood Pressure 136/56 L 138/61 Pulse Oximetry 94 93 Oxygen Flow Rate 0 0 Fraction of Inspired Oxygen 28 Oxygen Delivery Method Room Air Oxygen Flow Rate 0 Narrative Exam Narrative: Not repeated. Objective Labs Result Diagrams: 12/31/21 05:08 12/31/21 05:08 Labs: Laboratory Results - last 24 hr 12/31/21 12/31/21 05:08 05:08 WBC 15.0 H RBC 3.73 L Hgb 9.6 L Hct 29.8 L MCV 80.0 MCH 25.8 L MCHC 32.3 RDW 18.8 H Plt Count 267 Neut % (Auto) 88.9 H Lymph % (Auto) 3.1 L [place] % (Auto) 7.5 Eos % (Auto) 0.3 L Baso % (Auto) 0.2 Neut # (Auto) 80978 H Lymph # (Auto) 500 L [place] # (Auto) 1100 H Eos # (Auto) 100 Baso # (Auto) 0 Sodium 145 Potassium 3.4 Chloride 110 H Carbon Dioxide 21 L BUN 21 H Creatinine 1.12 Estimated GFR > 60 BUN/Creatinine Ratio 18.8 Glucose 106 Calcium 8.9 PFSH Medical History Afib Diabetes mellitus Hydronephrosis of right kidney Hyperlipidemia Hypertension Social History household members: spouse and family Smoking Status: Never smoker alcohol intake: never Assessment & Plan Assessment & Plan narrative: 1. Right hydronephrosis and evidence of urinary leakage from as yet undetermined cause right ureteral obstruction. 2. Inability to access ureteral orifice's by retrograde endoscopic approach-see operative report 12/30/2021. Plan: 1. Recommend transfer to facility equiped with IR staff and technology for placement of right percutaneous nephrostomy antegrade nephrostogram for diagnostic assistance as to the nature ureteral obstruction. 2. Recommend leaving urethral catheter indwelling until evidence of calyceal rupture, urinary leak, and any evidence of perinephric urinoma resolves. Time Spent With Patient Critical Care time: I spent a total of [] minutes of critical care time on this patient's care today; this time is exclusive of procedural time.
[2021-12-31 11:18] VITALS: BP 155/60; PULSE 86; RESP 16; TEMP 36.9; O2SAT 97
[2021-12-31] MEDS: SODIUM CHLORIDE 0.9% 1,000 ML 100 ML IV ×2 (13:11→23:13)
--- NOTE | 2021-12-31 14:01 | P.PN_ITS ---
Subjective Subjective Date Patient Seen: 12/31/21 Interval history: Yesterday patient went for attempted cystoscopy and stent placement of his right ureter. There was too much scarring and a stent was unable to be placed. Urology recommending transfer for percutaneous nephrostomy, possible further investigation as to the source of his obstruction. On cystoscopy there was stenosis and the ureters were unable to be visualized, presumably due to radiation according to the surgeon. He also started to become more distended, and NG was placed in the OR with 500 cc output. Continues to have high output today with another 500 cc thus far. Likely due to ileus based on CT appearance, possibly due to his calyceal rupture. Exam Vital Signs (past 8 hours): - 12/31/21 07:40 12/31/21 11:18 Temperature 96.8 F L 98.5 F Pulse Rate 86 86 Respiratory Rate 16 16 Blood Pressure 151/59 H 155/60 H Pulse Oximetry 96 97 Oxygen Flow Rate 0 0 Fraction of Inspired Oxygen 28 Oxygen Delivery Method Room Air Oxygen Flow Rate 0 Narrative Exam Narrative: General:? Patient is well developed and well nourished, in no distress at this time. Appears mildly ill, slightly improved today and more alert. HEENT:? Normocephalic, atraumatic, extraocular muscles intact, oral pharynx is clear and mucous membranes are dry, NG tube is in place. Neck: supple and symmetric, trachea is midline, no cervical adenopathy. Negative for JVD Chest:? Normal AP diameter and contour without kyphoscoliosis, no tachypnea, equal chest rise bilaterally. Lungs:? CTA b/l no wheezing rhonchi or rales. Cardio:?RRR no m/r/g. Abdomen: soft, minimal distension, more prominent suprapubically, RUQ tenderness. Musculoskeletal:? Muscle strength and tone are equal within normal limits, no deformity. Extremities: No edema or joint effusions. No cyanosis or clubbing. Skin:? Pale,? Warm to touch,dry and intact without rashes, ulcerations or petechiae.? Neuro:? Alert and orientated x3,? sensation to touch intact in all extremities, no gross deficits noted of cranial nerves. Psych:? Patient has a well-kept appearance, appropriate affect, mental status attitude thought context and judgment are appropriate for age. Objective Labs Result Diagrams: 12/31/21 05:08 12/31/21 05:08 Labs: Laboratory Results - last 24 hr 12/31/21 12/31/21 05:08 05:08 WBC 15.0 H RBC 3.73 L Hgb 9.6 L Hct 29.8 L MCV 80.0 MCH 25.8 L MCHC 32.3 RDW 18.8 H Plt Count 267 Neut % (Auto) 88.9 H Lymph % (Auto) 3.1 L [place] % (Auto) 7.5 Eos % (Auto) 0.3 L Baso % (Auto) 0.2 Neut # (Auto) 96512 H Lymph # (Auto) 500 L [place] # (Auto) 1100 H Eos # (Auto) 100 Baso # (Auto) 0 Sodium 145 Potassium 3.4 Chloride 110 H Carbon Dioxide 21 L BUN 21 H Creatinine 1.12 Estimated GFR > 60 BUN/Creatinine Ratio 18.8 Glucose 106 Calcium 8.9 PFSH Medical History Afib Diabetes mellitus Hydronephrosis of right kidney Hyperlipidemia Hypertension Social History household members: spouse and family Smoking Status: Never smoker alcohol intake: never Assessment & Plan Assessment & Plan narrative: This is an 81-year-old male with PMH of metastatic prostate cancer, DM2, HTN admitted with abdominal pain and acute kidney injury. Found to have a R calyceal rupture due to obstruction of unknown type. Abdominal pain, present on admission. Active. R hydronephrosis with calyceal r upture and ileus. -Repeat CT on 12/29 for worsening pain showed persistent R hydronephrosis, some concern for mass lesion leading to obstruction or calyceal rupture given free fluid. Discussed with urology, thought unlikely given CT appearance but given fluid recommended CT IV pyelogram which showed probable rupture. There is also dilated small bowel without obstruction, likely ileus possibly in setting of calyceal rupture or opiate use. -Appreciate consultation by Dr. Rankin. - he performed cystoscopy and attempted stent placement but he was unable to access ureteral orifice due to probable radiation based on his observations. He recommends transfer for placement of R percutaneous nephrostomy and possible antegrade nephrostogram for diagnostic assistance as to the nature of the obstruction. - Dr Salinas Recommends leaving urethral catheter indwelling until evidence of calyceal rupture, urinary leak, and any evidence of perinephric urinoma resolves.? - NG tube currently to low intermittent suction. Will continue until output improves. Lactic acidosis, present on admission. Active. -lactic acid level 2.8 on admission -secondary to acute abdominal process with gastroenteritis/urinary source suspected. -continue IV fluid resuscitation for now -continues on ceftriaxone Microscopic hematuria, present on admission. Active. -CT scan suggests low-grade cystitis, right hydronephrosis and UPJ inflammation changes. -no signs of ureteral lithiasis on CT scan but possible neoplasm after pyelogram noted above. -may be related to obstructive process (mass, etc) or infectious process. Unclear cause at this time, will likely know more after urological interventions. -remains on ceftriaxone. acute kidney injury, present on admission. Active. -creatinine is 1.5 with unknown baseline and possible CKD, worsened to 2.14 then improved to 1.12 today. Presumed secondary to above obstruction. 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 He has multiple sclerotic lesions noted on CT. HTN - continue home medications chronic atrial fibrillation - continue home medications, hold apixaban. DVT on apixaban, but will continue hold for presumed interventions His daughter Prabha Hopper is his backup decision maker. Code: Sales Center Manager Spent With Patient Critical Care time: I spent a total of [] minutes of critical care time on this patient's care today; this time is exclusive of procedural time.
--- NOTE | 2021-12-31 14:57 | CM.DPC ---
DCP Cont: Per MD and Urologist, pt with multiple medical complexities and pt needing a nephrostomy tube but complex underlying concerns and MD attempting hospital transfer for higher level of care needs. Per senior infrastructure architect, will also try a transfer and treat with return to [facility] if needed for accepting transfer. Plan: SW to follow closely for possible hospital transfer for higher level of care needs. TAHNG Antony
[2021-12-31 19:30] VITALS: BP 170/65; PULSE 93; RESP 15; TEMP 36.3; O2SAT 98
[2021-12-31] MEDS: HYDROMORPHONE 0.5 MG INJ IV (19:55)
--- NOTE | 2021-12-31 21:40 | PC.NURSE ---
Addendum entered by Cami Henriquez R.N. 01/01/22 06:19: Noted that IV site is but patient states has had difficulty finding IV access in past and declines to have IV restarted at this time. Original Note: Patient is alert and oriented. Breath sounds CTA with RA sat of 98%. HR irregular with controlled rate and has history of afib. BP elevated at 170/65; BP meds were last given yesterday so will monitor. Denies nausea. NG to LIS with bile colored gastric contents in suction canister. Abdomen is soft but distended and tender throughout. Complained of 7/10 diffuse abdominal pain so was medicated with IV Dilaudid at time of assessment and is currently asleep. BT hypoactive; did have loose stools on previous shift. Is currently NPO. Indwelling catheter is patent; urine is pale, light yellow. Is able to move himself in bed. Gait not assessed but reportedly gets out of bed with 1 assist + walker due to weakness. Refused SCD's so reminded to ankle wave. Fall risk score is high and bed alarm is activated.
[2021-12-31 23:39] VITALS: BP 169/64; PULSE 90; RESP 15; TEMP 36.2; O2SAT 97
[2022-01-01] VITALS (7 sets, daily range): BP systolic 171–199; BP diastolic 71–83; PULSE 72–113; RESP 15–17; TEMP 35.8–36.6; O2SAT 98–99
[2022-01-01] MEDS: TETRACAINE/BENZOCAINE/BUTAMBEN (CETACAINE) BOTTLE 1 SPRAY TOP ×2 (03:04→18:43)
[2022-01-01] MEDS: DEXTROSE 10 % IN WATER 250 ML 999 ML IV (06:10)
[2022-01-01 06:14] LABS: Add Manual Diff / Slide Review NO; Basophils Absolute Auto 0 /uL (0-100); Basophils Percent Auto 0.2 % (0-2); Eosinophils Absolute Auto 0 /uL (0-450); Eosinophils Percent Auto 0.3 % (2-4); Hematocrit 33.7 % (41-53); Hemoglobin 10.8 g/dL (13.5-17.5); Lymphocytes Absolute Auto 800 /uL (1100-4500); Lymphocytes Percent Auto 6.7 % (25-40); Mean Corpuscular Hemoglobin 26.1 PG (26-34); Mean Corpuscular Volume 81.5 fL (80-100); Monocytes Absolute Auto 1100 /uL (0-900); Monocytes Percent Auto 8.8 % (3-14); Neutrophils Absolute Auto 10200 /uL (1500-7000); Platelet Count 319 X10^3/uL (150-400); Red Blood Cell Count 4.14 X10^6/uL (4.5-5.9); Red Cell Distribution Width 18.8 % (11.6-14.8); White Blood Cell Count 12.1 X10^3/uL (4.5-11.0)
[2022-01-01 06:24] LABS: BUN Creatinine Ratio 13.1 (6-22); Blood Urea Nitrogen 11 mg/dL (9-20); Calcium 8.7 mg/dL (8.4-10.2); Carbon Dioxide 17 mmol/L (22-32); Chloride 118 mmol/L (98-107); Estimated Glomerular Filt Rate > 60 mL/min (>60); Glucose 72 mg/dL (80-110); HEMOLYSIS < 15 (0-50); Sodium 152 mmol/L (137-145)
[2022-01-01] MEDS: METOPROLOL TARTRATE 5 MG/5 ML INJ IV ×3 (07:49→19:42)
[2022-01-01] MEDS: DEXTROSE 5%-0.45% NS 1,000 ML 100 ML IV ×2 (08:44→19:49)
[2022-01-01] MEDS: POTASSIUM CHLORIDE IN WATER 10 MEQ/100 ML PIGGYBACK 100 MEQ IV ×6 (11:19→17:40)
[2022-01-01 15:21] LABS: BUN Creatinine Ratio 12.5 (6-22); Blood Urea Nitrogen 10 mg/dL (9-20); Calcium 8.6 mg/dL (8.4-10.2); Carbon Dioxide 20 mmol/L (22-32); Chloride 118 mmol/L (98-107); Estimated Glomerular Filt Rate > 60 mL/min (>60); Glucose 137 mg/dL (80-110); HEMOLYSIS < 15 (0-50); Potassium 3.7 mmol/L (3.4-5.1); Sodium 150 mmol/L (137-145)
[2022-01-01 16:54] LABS: COVID19 -Nasal RAPID Negative (Negative)
--- NOTE | 2022-01-01 18:50 | PC.NURSE ---
Pt states, sore throat. Administered cetacaine topical spray to throat, see MAR.
[2022-01-01 19:00] LABS: HEMOLYSIS 15 (0-50); Potassium 4.1 mmol/L (3.4-5.1)
--- NOTE | 2022-01-01 21:08 | PM.PN.1 ---
Subjective Subjective Date Patient Seen: 01/01/22 Time Patient Seen: 08:00 Interval history: He has no complaints today. Denies pain. He continues with NG tube to suction. He awaits transfer to higher level of care but [facility] Exam Vital Signs (past 8 hours): - 01/01/22 18:10 01/01/22 19:50 01/01/22 20:06 Temperature 97.2 F L 97.9 F 97.6 F Pulse Rate 95 H 89 86 Respiratory Rate 16 17 17 Blood Pressure 187/76 H 196/81 H 199/76 H Pulse Oximetry 99 98 98 Oxygen Flow Rate 0 0 0 Fraction of Inspired Oxygen 28 Oxygen Delivery Method Room Air Oxygen Flow Rate 0 Narrative Exam Narrative: General:? chronically ill appearing, fatigued HEENT:? NG tube is in place. Lungs:? clear bilaterally Cardio:?regular rate and rhythm, no murmurs Abdomen: soft, minimal distension, mild diffuselyl tender Objective Labs Result Diagrams: 01/01/22 05:38 01/01/22 18:10 Labs: Laboratory Results - last 24 hr 01/01/22 01/01/22 01/01/22 05:38 05:38 14:50 WBC 12.1 H RBC 4.14 L Hgb 10.8 L Hct 33.7 L MCV 81.5 MCH 26.1 MCHC 32.0 RDW 18.8 H Plt Count 319 Neut % (Auto) 84.0 H Lymph % (Auto) 6.7 L [place] % (Auto) 8.8 Eos % (Auto) 0.3 L Baso % (Auto) 0.2 Neut # (Auto) 99940 H Lymph # (Auto) 800 L [place] # (Auto) 1100 H Eos # (Auto) 0 Baso # (Auto) 0 Sodium 152 H 150 H Potassium 3.0 L 3.7 Chloride 118 H 118 H Carbon Dioxide 17 L 20 L BUN 11 10 Creatinine 0.84 0.80 Estimated GFR > 60 > 60 BUN/Creatinine Ratio 13.1 12.5 Glucose 72 L 137 H Calcium 8.7 8.6 SARS-CoV-2 (PCR) 01/01/22 01/01/22 15:45 18:10 WBC RBC Hgb Hct MCV MCH MCHC RDW Plt Count Neut % (Auto) Lymph % (Auto) [place] % (Auto) Eos % (Auto) Baso % (Auto) Neut # (Auto) Lymph # (Auto) [place] # (Auto) Eos # (Auto) Baso # (Auto) Sodium Potassium 4.1 Chloride Carbon Dioxide BUN Creatinine Estimated GFR BUN/Creatinine Ratio Glucose Calcium SARS-CoV-2 (PCR) Negative [facility] Medical History Afib Diabetes mellitus Hydronephrosis of right kidney Hyperlipidemia Hypertension Social History household members: spouse and family Smoking Status: Never smoker alcohol intake: never Assessment & Plan Assessment & Plan narrative: Mr. Saldivar is an 81M with PMH of metastatic prostate cancer, DM2, HTN admitted with abdominal pain and VIOLETA. Found to have a R calyceal rupture due to obstruction of unknown type. 1. Acute right hydronephrosis with calyceal rupture and ileus and acute right ureter obstruction -Repeat CT on 12/29 for worsening pain showed persistent R hydronephrosis, some concern for mass lesion leading to obstruction or calyceal rupture given free fluid. Discussed with urology, thought unlikely given CT appearance but given fluid recommended CT IV pyelogram which showed probable rupture. There is also dilated small bowel without obstruction, likely ileus possibly in setting of calyceal rupture or opiate use. -Appreciate consultation by Dr. Rankin. - he performed cystoscopy and attempted stent placement but he was unable to access ureteral orifice due to probable radiation based on his observations. He recommends transfer for placement of R percutaneous nephrostomy - urology ecommends leaving urethral catheter indwelling until evidence of calyceal rupture, urinary leak, and any evidence of perinephric urinoma resolves.? - NG tube currently to low intermittent suction. Will continue until output improves - IR at [facility] recommend repeat noncontrast CT on 01/02, and then recontact about transfer for possible percutaneous nephrostomy 2. Lactic acidosis, improved -lactic acid level 2.8 on admission -secondary to acute abdominal process with gastroenteritis/urinary source suspected. -continue IV fluid resuscitation for now -continues on ceftriaxone 3. Microscopic hematuria, present on admission. Active. -CT scan suggests low-grade cystitis, right hydronephrosis and UPJ inflammation changes. -may be related to obstructive process (mass, etc) or infectious process -remains on ceftriaxone. 4. acute kidney injury, present on admission. Reolved -creatinine is 1.5 with unknown baseline and possible CKD, worsened to 2.14 and now resolved -suspect secondary to obstruction -continue IV fluid 5. Type 2 diabetes, chronic -glucose 181 on admission -continue home medications 6. Metastatic prostate cancer - patient with known metastatic prostate cancer with mets to bone. He has multiple sclerotic lesions noted on CT. 7. HTN - continue home medications 8. chronic atrial fibrillation - continue home medications, hold apixaban. Time Spent With Patient Critical Care time: I spent a total of [] minutes of critical care time on this patient's care today; this time is exclusive of procedural time.
[2022-01-02] VITALS (12 sets, daily range): BP systolic 151–219; BP diastolic 65–91; PULSE 75–107; RESP 14–18; TEMP 35.9–36.7; O2SAT 99–100
[2022-01-02] MEDS: METOPROLOL TARTRATE 5 MG/5 ML INJ IV ×4 (00:22→18:20)
[2022-01-02] MEDS: DEXTROSE 5%-0.45% NS 1,000 ML 100 ML IV ×2 (05:30→16:05)
[2022-01-02] MEDS: HYDROMORPHONE 0.5 MG INJ IV (08:30)
[2022-01-02] MEDS: HYDRALAZINE 20 MG/ML VIAL 10 MG IV ×2 (10:03→16:06)
--- NOTE | 2022-01-02 10:22 | PC.NURSE ---
Addendum entered by Alie Agee R.N. 01/02/22 15:47: 10:[address] Thomas pt blood pressure 201/83 and heart rate 98, no new orders from Dr. Thomas. Addendum entered by Alie Agee R.N. 01/02/22 15:41: 10:03 Hydralazine administered see MAR. Original Note: 08:[address] Thomas that pt blood pressure is 207/92 and heart rate is 91, pt states, has a headache. Dr. Thomas says she will pt in an order for hydralazine, see MAR.
[2022-01-02] MEDS: TETRACAINE/BENZOCAINE/BUTAMBEN (CETACAINE) BOTTLE 1 SPRAY TOP (15:53)
--- NOTE | 2022-01-02 18:10 | PM.PN.1 ---
Subjective Subjective Date Patient Seen: 01/02/22 Interval history: 81-year-old gentleman with atrial fibrillation, diabetes mellitus type 2, hyperlipidemia, and hypertension who was admitted with abdominal pain, lactic acidosis, hematuria, VIOLETA, and right hydronephrosis. He was found to have right ureteral obstruction, bladder neck contracture, and calyceal rupture with suspected urinary leak. Cystoscopy was performed and the bladder neck contracture was relieved but ureteral stent could not be placed. Subsequently recommendations for a percutaneous nephrostomy tube was made. This cannot be performed at our facility and attempts were made to transfer to an outside facility a recommendation from Dr. Rankin. Trent catheter is in place. He did develop an ileus during his cystoscopy and an NG-tube was placed. Patient reports he is feeling quite well today. We did clamp his NG tube this morning as he was having no nausea or symptoms and was tolerating sips of water. He also was having elevated blood pressures and received IV antihypertensive therapy. Currently, he notes he is feeling quite well. He is not having any flank pain. No abdominal pain. He is passing adequate urine. He did have a large stool today and has been passing gas. He does express sadness that he was supposed to be here on vacation from [place] and instead has ended up hospitalized. He is scheduled to return home to [place] in February. Exam Vital Signs (past 8 hours): - 01/02/22 10:40 01/02/22 13:00 01/02/22 15:56 Temperature 98.0 F Pulse Rate 98 H 80 94 H Respiratory Rate 16 Blood Pressure 201/83 H 198/77 H 184/91 H Pulse Oximetry 99 Oxygen Flow Rate 0 01/02/22 16:06 01/02/22 16:55 01/02/22 16:55 Temperature 96.6 F L Pulse Rate 94 H 107 H 107 H Respiratory Rate 16 Blood Pressure 184/91 H 171/65 H 171/65 H Pulse Oximetry 100 Oxygen Flow Rate 0 Fraction of Inspired Oxygen 28 Oxygen Delivery Method Room Air Oxygen Flow Rate 0 Narrative Exam Narrative: GEN: Pleasant elderly male, Alert and oriented x 3, NAD HEENT:NC, Face symmetric CHEST: Respiratory excursions symmetric, CTAB CV: RRR, no M/R/G ABD: Soft, NT/ND, BT present in all 4 quadrants, no organomegaly or masses EXTR: warm, well perfused, no C/C/E SKIN: warm and dry, no rash NEURO: Alert and oriented x 3, nonfocal Objective Labs Result Diagrams: 01/01/22 05:38 01/01/22 18:10 Labs: Laboratory Results - last 24 hr 01/01/22 18:10 Potassium 4.1 COUNTS INCLUDE 234 BEDS AT THE [facility] Medical History Afib Diabetes mellitus Hydronephrosis of right kidney Hyperlipidemia Hypertension Social History household members: spouse and family Smoking Status: Never smoker alcohol intake: never Assessment & Plan Assessment & Plan narrative: 1. Acute right hydronephrosis with calyceal rupture and acute right ureteral obstruction Initial CT scan on December 27 revealed right-sided moderate hydronephrosis. Follow-up CT performed on December 29 was concerning for calyceal rupture and urinary leak. However, he has had improvement of his VIOLETA, has had good urine output no pain. I did receive a call today from Urology at [facility]. At this time, they do not believe he needs a nephrostomy tube as he has had improvement of his admitting symptoms. Operative recommendations are for repeat CT scan to ensure that the moderate hydronephrosis previously seen has improved. If that is improved, the recommendation is to continue Trent catheterization until he can follow-up on an outpatient basis with Dr. Rankin, at which time he should undergo a voiding trial. 2. Ileus Significantly improved. NG tube was clamped which he tolerated well. Will discontinue the NG tube particularly now that he is passing gas frequently, has no abdominal distension, and has had a bowel movement. Will place on clear liquids tonight. If he tolerates that well, will advance to a regular diet tomorrow. 3. Lactic acidosis 2.8 on admission. It was not recheck to but clinically he is significantly improved. Suspect this was secondary to hypovolemia. IV fluids are being discontinued today. Continue Rocephin empirically. 4. Microscopic hematuria Likely secondary to his hydronephrosis, inflammatory changes. Remains on empiric Rocephin, but UTI could not be ruled in or out. Urine cultures are negative. 5. VIOLETA, present on admission Creatinine was 2.14 on admission. Significantly improved he return to baseline of 0.8 today. 6. Type 2 diabetes Blood sugar was 181 on admission. Blood sugars have been stable, ranging from 138-184. 7. Metastatic prostate cancer Patient has known bone metastases. He has been followed by his oncologist in [place]. 8. Hypertension Will resume his usual oral home medications tomorrow as long as he tolerates oral intake. Continues IV as needed medications for now. 9. Chronic atrial fibrillation Will plan to resume all of his usual home medications if he is tolerating an oral diet. Holding his apixaban for now. Code status Full Prophylaxis Will start prophylactic Lovenox today. If his CT shows stable or improved findings with regard to his right hydronephrosis, will resume his apixaban tomorrow. Disposition Acute care, home with family at discharge Time Spent With Patient Critical Care time: I spent a total of [] minutes of critical care time on this patient's care today; this time is exclusive of procedural time.
[2022-01-02] MEDS: ACETAMINOPHEN 325 MG TABLET PO (21:43)
--- NOTE | 2022-01-02 22:30 | PC.NURSE ---
Requested Tylenol states I'm feeling feverish. Checked his temp. 98.0, denies abdominal pain & no C/O nausea. Will cont. POC & monitor.
[2022-01-03] VITALS (9 sets, daily range): BP systolic 130–184; BP diastolic 55–80; PULSE 87–97; RESP 16–20; TEMP 36.3–37.3; O2SAT 95–100
[2022-01-03] MEDS: METOPROLOL TARTRATE 5 MG/5 ML INJ IV (00:10)
[2022-01-03] MEDS: DEXTROSE 5%-0.45% NS 1,000 ML 100 ML IV (03:22)
--- NOTE | 2022-01-03 06:00 | DI.CT.S_ITS ---
PROCEDURE: CT ABDOMEN PELVIS WO CON INDICATIONS: Reassess hydronephrosis TECHNIQUE: Axial sections were acquired from the lung bases to the pubic symphysis. Coronal and sagittal reformats were performed. For radiation dose reduction, the following was used: automated exposure control, adjustment of mA and/or kV according to patient size. COMPARISON: [facility], CT, CT IVP A/P W/WO, 12/29/2021, 15:07. [facility], CT, CT ABDOMEN PELVIS W CON, 12/27/2021, 3:01. [facility], CT, CT ABDOMEN PELVIS WO CON, 12/29/2021, 10:58. FINDINGS: Image quality: Excellent. Lung bases: There is a trace left-sided pleural effusion with overlying atelectasis. The previously seen trace right-sided pleural effusion has resolved. A small hiatal hernia is incidentally noted. Heart: No significant findings. URINARY: Right Kidney: There is mild right-sided hydronephrosis. Relatively prominent right-sided perinephric fat stranding is seen, which is slightly improved compared to the prior examination. No right-sided kidney stones are seen. There is an apparent hyperdense cyst seen posteriorly. Right Ureter: No hydroureter. Left Kidney: No stones or hydronephrosis. Left Ureter: No hydroureter. Bladder: Normal wall thickness. No stones. ABDOMEN: Liver: Unremarkable. Gallbladder: The gallbladder demonstrates vicarious excretion of contrast within its lumen. 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 Biliary ducts: Unremarkable. Pancreas: Unremarkable. Spleen: Unremarkable. Adrenal Glands: Unremarkable. Stomach and Bowel: Stomach, small bowel loops, and colon are unremarkable. The previously administered oral contrast is seen within the colon. Peritoneum: No abnormal intraperitoneal fluid. No free air. Ventral Wall: No hernia. Abdominal Nodes: No enlarged retroperitoneal or mesenteric lymph nodes. Vessels: Aorta and inferior vena cava are normal in size. Atherosclerotic calcification is noted. PELVIS: Pelvic Organs: Unremarkable. Pelvic Nodes: Unremarkable. Miscellaneous: No inguinal hernias are seen. Bones: The previously seen left posterior rib sclerosis is off of the field of view of this study. Several sclerotic foci can be seen elsewhere, which are stable. IMPRESSION: There is mild right-sided hydronephrosis, which is slightly improved compared to the prior. There is a moderate amount of right-sided perinephric fat stranding, which is improved compared to the prior. The previously seen extraluminal contrast has resolved. There is a trace left-sided pleural effusion with overlying atelectasis. There is interval resolution of the trace right-sided pleural effusion. Sclerotic bone lesions are seen, which are attributed to metastatic disease. 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 The small bowel loops now demonstrate normal caliber. The previously administered oral contrast is now seen within the colon. Incidental note is made of: Small hiatal hernia Dictated by: Parker Mejia M.D. on 01/03/2022 at 9:44 Approved by: Parker Mejia M.D. on 01/03/2022 at 9:51
--- NOTE | 2022-01-03 07:13 | P.PN_ITS ---
Subjective Subjective Date Patient Seen: 01/03/22 Interval history: 81-year-old gentleman with atrial fibrillation, diabetes mellitus type 2, hyperlipidemia, and hypertension who was admitted with abdominal pain, lactic acidosis, hematuria, VIOLETA, and right hydronephrosis.? He was found to have right ureteral obstruction, bladder neck contracture, and calyceal rupture with suspected urinary leak.? Cystoscopy was performed and the bladder neck contracture was relieved but ureteral stent could not be placed.? Subsequently recommendations for a percutaneous nephrostomy tube was made.? This cannot be performed at our facility and attempts were made to transfer to an outside facility a recommendation from Dr. Rankin.? Trent catheter in place.? He did develop an ileus during his cystoscopy and an NG-tube was placed.? This showed improvement, NG tube was clamped on the morning of January 02, and ultimately discontinued on the afternoon of January 02. He did pass a bowel movement as well as a lot of gas on January 02 as well. Diet was advanced to clear liquids which he tolerated well. Reports he is feeling reasonably well today. He denies any abdominal pain. Denies any nausea. Tolerated his diet. He continues to express disappointment over his medical illness while he is supposed to be on vacation. Exam Vital Signs (past 8 hours): - 01/03/22 00:00 01/03/22 06:00 Temperature 97.3 F L 98.8 F Pulse Rate 87 97 H Respiratory Rate 20 16 Blood Pressure 180/78 H 163/63 H Pulse Oximetry 99 96 Fraction of Inspired Oxygen 28 Oxygen Delivery Method Room Air Oxygen Flow Rate 0 Narrative Exam Narrative: GEN:? Pleasant elderly male, drowsy but oriented x 3, NAD HEENT:NC, Face symmetric CHEST: Respiratory excursions symmetric, CTAB CV: RRR, no M/R/G ABD: Soft, NT/ND, BT present in all 4 quadrants, no organomegaly or masses EXTR: warm, well perfused, no C/C/E SKIN: warm and dry, no rash NEURO: Drowsy, oriented x 3, nonfocal Objective Labs Result Diagrams: 01/03/22 11:14 01/03/22 11:14 [facility] Medical History Afib Diabetes mellitus Hydronephrosis of right kidney Hyperlipidemia Hypertension Social History household members: spouse and family Smoking Status: Never smoker alcohol intake: never Assessment & Plan Assessment & Plan narrative: 1. Acute right hydronephrosis with calyceal rupture and acute right ureteral obstruction Initial CT scan on December 27 revealed right-sided moderate hydronephrosis.? Follow-up CT performed on December 29 was concerning for calyceal rupture and urinary leak.? However, he has had improvement of his VIOLETA, has had good urine output no pain.? I spoke to Urology at the [facility] on January 02, and recommendation was for follow-up CT scan to reassess hydronephrosis. Urologist on-call did not feel that nephrostomy tube was indicated in LEs hydronephrosis was persistent. CT scan was performed today which showed improvement in the hydronephrosis as well as in the perinephric stranding.? Urology at [facility] recommended to continue Trent catheterization until the patient can follow-up on an outpatient basis with Dr. Rankin, at which time he should undergo a voiding trial. 2. Ileus Resolved. Will admit to a regular diet today. He did not have gastroenteritis 3. Lactic acidosis 2.8 on admission.? It was not recheck to but clinically he is significantly improved.? Suspect this was secondary to hypovolemia.? IV fluids are being discontinued today.? Continue Rocephin empirically. 4. Microscopic hematuria Likely secondary to his hydronephrosis, inflammatory changes.? Remains on e mpiric Rocephin, but UTI could not be ruled in or out.? Urine cultures are negative. 5. VIOLETA, present on admission-resolved Creatinine was 2.14 on admission.? Significantly improved he return to baseline of 0.8 today. 6. Type 2 diabetes Blood sugar was 181 on admission.? Blood sugars have been stable, ranging from 149-194. 7. Metastatic prostate cancer Patient has known bone metastases.? He has been followed by his oncologist in [place]. 8. Hypertension Resume metoprolol and nifedipine today. 9. Chronic atrial fibrillation Rate controlled. Will resume amiodarone and apixaban Code status Full Prophylaxis Will resume apixaban Disposition Acute care, home with family at discharge. PT and OT consult is requested Time Spent With Patient Critical Care time: I spent a total of [] minutes of critical care time on this patient's care today; this time is exclusive of procedural time.
[2022-01-03 11:27] LABS: Add Manual Diff / Slide Review NO; Basophils Absolute Auto 100 /uL (0-100); Basophils Percent Auto 0.4 % (0-2); Eosinophils Absolute Auto 100 /uL (0-450); Eosinophils Percent Auto 0.4 % (2-4); Hematocrit 30.6 % (41-53); Lymphocytes Absolute Auto 700 /uL (1100-4500); Lymphocytes Percent Auto 5.7 % (25-40); Mean Corpuscular HGB Conc 32.7 % (30-36); Mean Corpuscular Volume 79.5 fL (80-100); Monocytes Absolute Auto 600 /uL (0-900); Monocytes Percent Auto 4.4 % (3-14); Neutrophils Absolute Auto 11800 /uL (1500-7000); Neutrophils Percent Auto 89.1 % (50-75); Platelet Count 271 X10^3/uL (150-400); Red Blood Cell Count 3.85 X10^6/uL (4.5-5.9); Red Cell Distribution Width 18.5 % (11.6-14.8); White Blood Cell Count 13.2 X10^3/uL (4.5-11.0)
[2022-01-03 11:38] LABS: BUN Creatinine Ratio 7.9 (6-22); Blood Urea Nitrogen 11 mg/dL (9-20); Calcium 7.8 mg/dL (8.4-10.2); Carbon Dioxide 25 mmol/L (22-32); Chloride 103 mmol/L (98-107); Estimated Glomerular Filt Rate 51 mL/min (>60); Glucose 187 mg/dL (80-110); HEMOLYSIS < 15 (0-50); Sodium 135 mmol/L (137-145)
[2022-01-03 11:50] LABS: Potassium 2.7 mmol/L (3.4-5.1)
[2022-01-03] MEDS: ENOXAPARIN 40 MG/0.4 ML SYRINGE SUBCUT (12:06)
[2022-01-03] MEDS: METOPROLOL ER 50 MG TABLET 100 MG PO (12:06)
[2022-01-03] MEDS: NIFEdipine 30 MG TAB ER 90 MG PO (12:08)
[2022-01-03] MEDS: ASCORBIC ACID 500 MG TABLET PO (12:09)
[2022-01-03] MEDS: MULTIVITAMIN 1 TABLET 1 TAB PO (12:09)
--- NOTE | 2022-01-03 12:31 | PC.NURSE ---
Addendum entered by Tigist Tejada R.N. 01/03/22 13:54: for lunch patient ate half a cup chocolate porridge. appetite slowly improving. Original Note: administered his morning meds, okay to give per report from Aleida POSADAS, she also notified provider regarding critical lab of potassium.
--- NOTE | 2022-01-03 12:50 | OT.IP.EVAL ---
Current Diagnoses Hydronephrosis with ureteral stricture, not elsewhere classified (12/27/21) Surgery Performed Operation Date: 12/30/21 17:15 Actual Procedures p Cystoscopy with dilation of bladder neck contracture - Inocencio Rankin MD Past Medical History (Last Reviewed 12/30/21 @ 07:56 by Inocencio Rankin MD) Afib Diabetes mellitus Hydronephrosis of right kidney Hyperlipidemia Hypertension Occupational Therapy Inpatient Evaluation/Re-Eval M1 PT/OT-IP Prior Functional Status Start: 01/03/22 13:55 Freq: NEEDED Status: Active Protocol: Document 01/03/22 13:40 [facility] (Rec: 01/03/22 14:15 [facility] [id number]) Medical Review Prior Functional Status Communication Congolese in not him primary language but able to understand and speak Congolese. Mobility and Gait Pt uses a SPC to get around. Pt's daughter states 2 weeks ago able to walk around the block. Activities of Daily Living and IADL's Pt able to do all his ADL's and does his IADL needs. Prior Functional Level (Other details) Pt here with his to visit his daughter in [place]. Pt lives in [place] with his other daughter and nephew. House set-up based on daughter 's house in [place]. Pt's daughter states usually assist to help him with the steps into and out of the house and assist him as needed for ADl needs. Pt is not very active usually. Social History Household Members spouse,family Living Arrangements House Number of Floors (Floors) Two Floors Number of Stairs To Enter/Railing? Pt's daughter house has 2 floors and 2 steps with no rails. Pt can sleep on the main level and the tub/shower is upstairs. Home Environment Standard Height Toilet,Tub/ Shower Home Equipment Hand Held Shower M2 OT-IP Current Condition Start: 01/03/22 13:55 Freq: Status: Active Protocol: Document 01/03/22 13:40 [facility] (Rec: 01/03/22 14:15 [facility] [id number]) Occupational Therapy Current Condition Current Condition Evaluation Date 01/03/22 Treatment Diagnosis Acute R hydronephrosis with calyceal rupture Diagnosis Onset Date 12/27/21 M3 OT- IP Subjective and Pain Start: 01/03/22 13:55 Freq: Status: Active Protocol: Document 01/03/22 13:40 [facility] (Rec: 01/03/22 14:15 [facility] [id number]) OT- Subjective Occupational Therapy Visit Type Type Initial Evaluation Visit Start Time 12:50 Visit Stop Time 13:40 Total Visit Minutes 50 Occupational Therapy Visit Comments Patient Comments Pt not wanting to get up initially as too tired. Pt agreed to get up after encouragement from pt's daughter and that OT and PT would see him together so that he would not get too tired. Patient/Caregiver Goals TO go home. OT Pain Assessment Pain When Pain Assessed At Rest Pain Present Pain Present Denied Pain M4 OT- IP ADL's Start: 01/03/22 13:55 Freq: Status: Active Protocol: Document 01/03/22 13:40 [facility] (Rec: 01/03/22 14:15 [facility] [id number]) OT [id number] Comments OT Self-Feeding Comments Not at meal time. OT ADL-Grooming Comments OT Grooming Comments Pt states did prior. OT ADL-Oral Care Comments Oral Care Comments Pt states did prior. OT ADL-Dressing General Eval Lower Body Dressing Ability Maximum Assistance Areas Needing Assistance Underpants/Brief Comments OT Dressing Comments MAXA to help thread feet and catheter over his feet, and assist to help pull up brief in the back. OT ADL-Toileting General Evaluation Toileting Ability Moderate Assistance Areas Needing Assistance Manage Clothing,Perform Perineal Hygiene Comments OT Toileting Comments Pt able to stand and use washcloth to do pericare needs . Assist to help put barrier cream on and for brief management needs. OT ADL-Bathing Comments OT Bathing Comments Pt too tired to attempt today. M5 OT- IP IADL's Start: 01/03/22 13:55 Freq: Status: Active Protocol: Document 01/03/22 13:40 [facility] (Rec: 01/03/22 14:15 [facility] [id number]) OT-Instrumental Activities of Daily Living Deficits IADL Deficits Identified Deficits Home Safety Awareness Home Safety Comments Pt has suppotive family to assist with his needs at this time. Money Management Money Management Caregiver Provides Assistance Meal Preparation Meal Preparation Caregiver Provides Assist Harvester Operator Harvester Operator Caregiver Provides Assist Driving Driving Concerns Identified Regarding Safety M6 OT- IP Functional Cognition Start: 01/03/22 13:55 Freq: Status: Active Protocol: Document 01/03/22 13:40 [facility] (Rec: 01/03/22 14:15 [facility] [id number]) Cognitive Factors Limiting Selfcare Function Cognitive Ability Level of Alertness Alert Patient Orientation Name,Place,Situation Attention Span Ability Capable of Focused Attention, Capable of Sustained Attention Ability to Follow Commands Able to Follow One Step Commands Cognitive Comments Cognitive Assessment Comments Pt able to follow commands for ADl and mobility needs. OT- Vision and Hearing OT- Hearing Assessment OT- Hearing Assessment WFL OT- Vision Assessment Vision Assessment Comments Pt has rigth prothetic eye. M7 OT- IP Mobility and Balance Start: 01/03/22 13:55 Freq: Status: Active Protocol: Document 01/03/22 13:40 [facility] (Rec: 01/03/22 14:15 [facility] [id number]) OT- Bed Mobility Assessment Rolling Type of Rolling Roll to Right Level of Assistance Contact Guard Assistance Supine to Sit Supine to Sit Assist Contact Guard Assistance Sit to Supine Sit to Supine Assist Contact Guard Assistance OT-Transfer Assessment Sit to and From Stand Sit to and from Stand Contact Guard Assistance Transfers Transfer Ability Contact Guard Assistance Technique Transfer Destination Bed Transfer Technique Stand Step Pivot Devices Transfer Assistive Devices Gait Belt,Front Wheeled Walker Comments Mobility Comments Pt needing a hand to pull on to help initally get out of bed. CGA to stand and to walk around the bed with CGA with FWW. BP initially 161/63 and after feeling whoozy after up on his feet 165/65. OT- Balance Assessment Sitting Balance and Reactions Static Sitting Balance Ability Good Dynamic Sitting Balance Ability Good Standing Balance and Reactions Static Standing Balance Ability Fair Dynamic Standing Balance Ability Fair M8 OT- IP Objective Assessments Start: 01/03/22 13:55 Freq: Status: Active Protocol: Document 01/03/22 13:40 [facility] (Rec: 01/03/22 14:15 [facility] [id number]) OT Gross Range of Motion Upper Extremity Range of Motion Assessment Bilaterally Impaired ROM Impairments Pt limited in shoulder AROM OT Strength Comments Strength Comments WFL from elbow to distal for BUE strength. OT Sensation Assessment Comments Summary Comments Intact for light touch. M9 OT- IP Assessment and Plan Start: 01/03/22 13:55 Freq: Status: Active Protocol: Document 01/03/22 13:40 [facility] (Rec: 01/03/22 14:15 [facility] [id number]) OT Summary Assessment and Plan Potential Rehabilitation Potential Good Analytic Complexity at Evaluation Moderate Summary OT Impairments Range of Motion,Strength, Balance,Functional Mobility, Grooming,Dressing,Toileting, Bathing,Toilet Transfers, Shower Transfers,Activity Tolerance Progress Towards Goals Slow Progress due to Medical Issues,Slow Progress due to Activity Tolerance Assessment Summary Pt MOD complexity and main barriers are steps, decreased activity tolerance and now needing one person assist for ADl and mobility needs. Pt has a supportive family and looking to go home with assist when medically stable. Goals Self-Feeding Goal Independent Grooming Goal Independent Dressing Goal Independent Toileting Goal Independent Bathing Goal Independent Toilet Transfer Goal Independent Shower Transfer Goal Independent Days to Meet Goals 10 Frequency of Treatment Frequency Of Treatment Once a Day Treatment Plan OT Treatment Plan ADL Training,Functional Mobility,Patient/Family Education,Discharge Planning Other Treatment Recommendations and Next shower Treatment Focus Discharge Recommendations OT Discharge Recommendations Home with 14/12 Assist Available,Home Health Home Equipment Needs shower chair,fww Transportation Needs at Discharge Private Vehicle
[2022-01-03] MEDS: POTASSIUM CHLORIDE 20 MEQ TAB PO ×2 (13:32→15:41)
--- NOTE | 2022-01-03 13:33 | PT.IIE ---
Current Diagnoses Hydronephrosis with ureteral stricture, not elsewhere classified (12/27/21) Surgery Performed Operation Date: 12/30/21 17:15 Actual Procedures p Cystoscopy with dilation of bladder neck contracture - Inocencio Rankin MD Medical History (Last Reviewed 12/30/21 @ 07:56 by Inocencio Rankin MD) Afib Diabetes mellitus Hydronephrosis of right kidney Hyperlipidemia Hypertension Physical Therapy Inpatient Evaluation/Re-Eval M1 PT/OT-IP Prior Functional Status Start: 01/03/22 13:55 Freq: NEEDED Status: Active Protocol: Document 01/03/22 13:33 DLM (Rec: 01/03/22 14:13 DL [id number]) Medical Review Prior Functional Status Medical History Reviewed Yes Diet/Fluid Consistency Regular Communication WFL, wears glasses Mobility and Gait ambulates with cane, independent community distances Activities of Daily Living and IADL's Independent Prior Functional Level (Other details) Pt lives in [place] with his and Daughter. He is visiting his Daughter locally and planned on helping her after her surgery. His is supportive but can not provide physical assistance. His is also local at this time Social History Household Members spouse,family Living Arrangements House Number of Floors (Floors) Two Floors Number of Stairs To Enter/Railing? 2 steps to enter Home Equipment Straight Cane Employment Status Retired M2 PT-IP Current Condition Start: 01/03/22 13:57 Freq: NEEDED Status: Active Protocol: Document 01/03/22 13:33 DLM (Rec: 01/03/22 14:13 DL [id number]) Physical Therapy Current Condition Current Condition Evaluation Date 01/03/22 Treatment Diagnosis ureteral obstruction, impaired gait and mobility Onset Date 12/27/21 M3 PT-IP Subjective Start: 01/03/22 13:57 Freq: NEEDED Status: Active Protocol: Document 01/03/22 13:33 DLM (Rec: 01/03/22 14:13 DL [id number]) Subjective Physical Therapy Visit Type Type Initial Evaluation Visit Start Time 13:00 Visit Stop Time 13:33 Total Visit Minutes 33 Notes co-treat with OT due to patients low activity tolerance Number of DRAUGHTSMAN Visits 0 Physical Therapy Visit Comments Patient Comments He c/o feeling very tired today. Patient Goals He wants to get better and go home M4 PT-IP Mobility and Gait Start: 01/03/22 13:57 Freq: NEEDED Status: Active Protocol: Document 01/03/22 13:33 DL (Rec: 01/03/22 14:13 [facility] [id number]) PT-Bed Mobility Assessment Rolling Level of Assist Independent Supine to Sit Supine to Sit Minimal Assistance Sit to Supine Sit to Supine Minimal Assistance Scooting Scooting to Edge of Bed Standby Assistance PT-Transfer Assessment Sit to and From Stand Sit to and from Stand Contact Guard Assistance, Minimal Assistance Equipment Transfer Assistive Device Gait Belt,Front Wheeled Walker Transfers Transfer Technique Stand Step Pivot Transfer Ability Level of Assist Contact Guard Assistance Comments Mobility Comments Pt had dizziness with initial sitting up on the edge of the bed but is resolved while up. He reports dizziness in standing that never got worse but did not fully resolve either. Gait Assessment Gait Gait Assistance Required: Contact Guard Assist Distance (Feet) 30 Assistive Devices Assistive Device Gait Belt,Front Wheeled Walker Gait Deviations General Gait Pattern Decreased Stride Length Factors Limiting Gait Function Factors Limiting Gait Function Decreased Activity Tolerance, Decreased Strength Comments Gait Comments He c/o mild dizziness during gait but it did not prevent mobility. He declined to get up to the recliner this visit but agreed to ambulate in the room with encouragement. Stair Climbing Assessment Comments Stair Climbing Comments not tested this visit due to low activity tolerance PT-Balance Assessment Sitting Balance and Reactions Static Sitting Balance Ability Normal Dynamic Sitting Balance Ability Good Standing Balance and Reactions Static Standing Balance Ability Good Dynamic Standing Balance Ability Good Device Used FWW M5 PT-IP Objective Assessments Start: 01/03/22 13:57 Freq: NEEDED Status: Active Protocol: Document 01/03/22 13:33 [facility] (Rec: 01/03/22 14:13 [facility] [id number]) Orientation Orientation/Cognition Level of Alertness Alert Orientation Name,Age,Birthday,Month,Date, Year,Day of Week,Place, Situation Language Function Ability No Deficits Noted Safety Awareness Understands Safety Issues Memory Description No Deficits Noted Comments prosthetic right eye Gross Range of Motion Upper Extremity ROM Assessment Bilaterally Impaired Impairments end range stiffness, tolerating about 90 degrees of elevation at this time Lower Extremity ROM Assessment Within Functional Limits Strength Lower Extremity Strength Assessment Bilaterally Impaired Hip hip flex 2+/5 B Knee 4/5 Ankle DF 4+/5 Coordination Assessment Gross Coordination Gross Coordination WNL Sensation Assessment Sensation Gross Sensation WNL Comments Sensation Comments he denies any numbness/ tingling in hands/feet Muscle Tone Muscle Tone WNL Yes M6 PT-IP Treatment Start: 01/03/22 13:57 Freq: NEEDED Status: Active Protocol: Document 01/03/22 13:33 DLM (Rec: 01/03/22 14:13 DLM [id number]) Physical Therapy Treatment Education Education Provided Safety Other Treatments Other Treatment Performed His Daughter is presen this visit and encourages him to mobilize M7 PT-IP Assessment and Plan Start: 01/03/22 13:57 Freq: NEEDED Status: Active Protocol: Document 01/03/22 13:33 DLM (Rec: 01/03/22 14:13 DLM [id number]) PT Summary Assessment and Plan Potential Rehabilitation Potential Good Status of Condition at Evaluation Evolving Summary Impairments ROM,Strength,Balance,Bed Mobility,Transfers,Gait, Activity Tolerance Assessment Summary Demetri is resting in bed and c/o feeling very tired. He needs encouragement to participate in therapy. He needs one person assist for bed mobility and gait with the FWW. He uses a cane at baseline but has increased LE weakness at this time. Will work towards discharge home with his and Daughter to assist. He will need to increase his activity tolerance to manage functional distances and stairs at his Daughters house. He plans to stay locally for now and return to [place] in February. Recommend he get up to the chair and ambulate in the room with nursing to help progress his activity tolerance. Goals Bed Mobility Goal Independent Transfer Goal Standby Assistance,Front Wheeled Walker Gait Goal Standby Assistance,Front Wheel Walker Gait Distance 100 feet Other Goals up and down 2 steps with CG/ min assist and cane Days to Meet Goals 5 Frequency of Treatment Frequency Of Treatment Once a Day Treatment Plan Physical Therapy Treatment Plan Bed Mobility Training,Transfer Training,Gait Training, Therapeutic Exercise,Balance Retraining,Discharge Planning, Neuromuscular Re-ed Precautions Other Precautions new hidalgo catheter Hx of prostate cancer with bone mets Recommendations To Nursing Amount of Assist Needed 1 Person Assist Discharge Recommendations PT Discharge Recommendations Home with Assistance,Home Health Equipment Needed for Home Before anticipate need for FWW Discharge Transportation Needs at Discharge Private Vehicle
[2022-01-03] MEDS: AMIODARONE 200 MG TABLET PO (18:20)
[2022-01-03] MEDS: APIXABAN 5 MG TABLET PO (20:07)
[2022-01-04] VITALS (7 sets, daily range): BP systolic 132–157; BP diastolic 50–67; PULSE 74–100; RESP 14–18; TEMP 36.3–37.6; O2SAT 95–99
--- NOTE | 2022-01-04 05:44 | P.PN_ITS ---
Subjective Subjective Date Patient Seen: 01/04/22 Interval history: 81-year-old gentleman with atrial fibrillation, diabetes mellitus type 2, hyperlipidemia, and hypertension who was admitted with abdominal pain, lactic acidosis, hematuria, VIOLETA, and right hydronephrosis.? He was found to have right ureteral obstruction, bladder neck contracture, and calyceal rupture with suspected urinary leak.? Cystoscopy was performed and the bladder neck contracture was relieved but ureteral stent could not be placed.? Subsequently recommendations for a percutaneous nephrostomy tube was made.? This cannot be performed at our facility and attempts were made to transfer to an outside facility a recommendation from Dr. Rankin.? Trent catheter in place.? He did develop an ileus during his cystoscopy and an NG-tube was placed.? This showed improvement, NG tube was clamped on the morning of January 02, and ultimately discontinued on the afternoon of January 02.? He did pass a bowel movement as well as a lot of gas on January 02 as well.? Diet was advanced to clear liquids which he tolerated well. Patient denies any abdominal pain, back pain, or other new symptoms. He remains somewhat withdrawn today. States he is eating well. RN does report some loose stools today. Exam Vital Signs (past 8 hours): - 01/04/22 00:00 Temperature 99.7 F H Pulse Rate 96 H Respiratory Rate 18 Blood Pressure 132/55 L Pulse Oximetry 95 Oxygen Flow Rate 0 Fraction of Inspired Oxygen 28 Oxygen Delivery Method Room Air Oxygen Flow Rate 0 Narrative Exam Narrative: GEN:? Pleasant elderly male, drowsy but oriented x 3, NAD HEENT:NC, Face symmetric CHEST: Respiratory excursions symmetric, CTAB CV: RRR, no M/R/G ABD: Soft, NT/ND, BT present in all 4 quadrants, no organomegaly or masses EXTR: warm, well perfused, no C/C/E SKIN: warm and dry, no rash NEURO:? Drowsy, oriented x 3, nonfocal Objective Labs Result Diagrams: 01/04/22 06:11 01/04/22 06:11 Labs: Laboratory Results - last 24 hr 01/03/22 01/03/22 11:14 11:14 WBC 13.2 H RBC 3.85 L Hgb 10.0 L Hct 30.6 L MCV 79.5 L MCH 26.0 MCHC 32.7 RDW 18.5 H Plt Count 271 Neut % (Auto) 89.1 H Lymph % (Auto) 5.7 L Mcduffie % (Auto) 4.4 Eos % (Auto) 0.4 L Baso % (Auto) 0.4 Neut # (Auto) 30397 H Lymph # (Auto) 700 L Mcduffie # (Auto) 600 Eos # (Auto) 100 Baso # (Auto) 100 Sodium 135 L D Potassium 2.7 L* D Chloride 103 Carbon Dioxide 25 BUN 11 Creatinine 1.39 H Estimated GFR 51 L BUN/Creatinine Ratio 7.9 Glucose 187 H Calcium 7.8 L PFSH Medical History Afib Diabetes mellitus Hydronephrosis of right kidney Hyperlipidemia Hypertension Social History household members: spouse and family Smoking Status: Never smoker alcohol intake: never Assessment & Plan Assessment & Plan narrative: 1. Acute right hydronephrosis with calyceal rupture and acute right ureteral obstruction Initial CT scan on December 27 revealed right-sided moderate hydronephrosis.? Follow-up CT performed on December 29 was concerning for calyceal rupture and urinary leak.? However, he has had improvement of his VIOLETA, has had good urine output no pain.? I spoke to Urology at the [facility] on January 02, and recommendation was for follow-up CT scan to reassess hydronephrosis.? Urologist on-call did not feel that nephrostomy tube was indicated in LEs hydronephrosis was persistent.? CT scan was performed today which showed improvement in the hydronephrosis as well as in the perinephric stranding.? Urology at [facility] recommended to continue Trent cathete rization until the patient can follow-up on an outpatient basis with Dr. Rankin, at which time he should undergo a voiding trial. 2. Ileus Resolved.? Tolerating a regular diet. He is having some persistent loose stools. 3. Leukocytosis White blood cell count was as high as 15.2 on December 28. It gradually came down to 12.1 on January 01. Was up to 13.2 yesterday and is 19.2 today. Certainly this is concerning in light of his worsening VIOLETA as well. CT performed yesterday showed improvement overall. He does remain catheterize. Will send a follow-up UA with culture. Isn't febrile. Previous blood and urine cultures were negative. No respiratory symptoms. 4. Microscopic hematuria Likely secondary to his hydronephrosis, inflammatory changes.? Urine cultures were negative from December 27. 5. VIOLETA, present on admission Creatinine was 2.14 on admission.? Rapidly improved back down to normal on March 02. Creatinine was 0.8 on January 01. Yesterday it was up to 1.39 today is 1.41. Overall, his oral intake has been suboptimal around 800 cc or so. IV fluids were ordered this afternoon, but his IV went bad and a new 1 could not be placed. Encourage nursing to push oral fluid intake for now. 6. Type 2 diabetes Blood sugar was 181 on admission.? Blood sugars have been stable, ranging from 92-150 7. Metastatic prostate cancer Patient has known bone metastases.? He has been followed by his oncologist in [place]. 8. Hypertension Resumed metoprolol and nifedipine yesterday. BPs much improved. 9. Chronic atrial fibrillation Rate controlled.?Restarted amiodarone and apixiban yesteray. 10. Hypokalemia Potassium remains low at 2.8 despite repletion. Will continue oral potassium. Suspect his poor oral intake in the setting of GI losses is continuing to cause hypokalemia. Resolved issues: Lactic acidosis Code status Full Prophylaxis apixaban Disposition Acute care, home with family at discharge.?Therapies recommending FWW and HH. Time Spent With Patient Critical Care time: I spent a total of [] minutes of critical care time on this patient's care today; this time is exclusive of procedural time.
[2022-01-04 06:38] LABS: Add Manual Diff / Slide Review NO; Basophils Absolute Auto 0 /uL (0-100); Basophils Percent Auto 0.2 % (0-2); Eosinophils Absolute Auto 100 /uL (0-450); Eosinophils Percent Auto 0.6 % (2-4); Hematocrit 28.8 % (41-53); Hemoglobin 9.2 g/dL (13.5-17.5); Lymphocytes Absolute Auto 1100 /uL (1100-4500); Lymphocytes Percent Auto 5.6 % (25-40); Mean Corpuscular Hemoglobin 25.4 PG (26-34); Mean Corpuscular Volume 79.6 fL (80-100); Monocytes Absolute Auto 1100 /uL (0-900); Monocytes Percent Auto 5.9 % (3-14); Neutrophils Absolute Auto 16800 /uL (1500-7000); Neutrophils Percent Auto 87.7 % (50-75); Platelet Count 261 X10^3/uL (150-400); Red Blood Cell Count 3.61 X10^6/uL (4.5-5.9); Red Cell Distribution Width 18.2 % (11.6-14.8); White Blood Cell Count 19.2 X10^3/uL (4.5-11.0)
[2022-01-04 06:45] LABS: BUN Creatinine Ratio 9.2 (6-22); Blood Urea Nitrogen 13 mg/dL (9-20); Calcium 7.6 mg/dL (8.4-10.2); Carbon Dioxide 23 mmol/L (22-32); Chloride 103 mmol/L (98-107); Estimated Glomerular Filt Rate 50 mL/min (>60); Glucose 95 mg/dL (80-110); HEMOLYSIS < 15 (0-50); Potassium 2.8 mmol/L (3.4-5.1); Sodium 135 mmol/L (137-145)
[2022-01-04] MEDS: NIFEdipine 30 MG TAB ER 90 MG PO (08:51)
[2022-01-04] MEDS: APIXABAN 5 MG TABLET PO ×2 (08:52→20:53)
[2022-01-04] MEDS: METOPROLOL ER 50 MG TABLET 100 MG PO (08:52)
[2022-01-04] MEDS: MULTIVITAMIN 1 TABLET 1 TAB PO (08:52)
[2022-01-04] MEDS: AMIODARONE 200 MG TABLET PO ×2 (08:52→18:07)
[2022-01-04] MEDS: ASCORBIC ACID 500 MG TABLET PO (08:52)
[2022-01-04] MEDS: SODIUM CHLORIDE 0.9% FLUSH 10 ML IV (08:55)
--- NOTE | 2022-01-04 15:48 | PT.IPTN ---
Current Diagnoses Hydronephrosis with ureteral stricture, not elsewhere classified (12/27/21) Surgery Performed Operation Date: 12/30/21 17:15 Actual Procedures p Cystoscopy with dilation of bladder neck contracture - Inocencio Rankin MD Physical Therapy Treatment Note M2 PT-IP Current Condition Start: 01/03/22 13:57 Freq: NEEDED Status: Active Protocol: Document 01/04/22 15:07 SP (Rec: 01/04/22 18:46 SP [id number]) Physical Therapy Current Condition Current Condition Evaluation Date 01/03/22 Treatment Diagnosis ureteral obstruction, impaired gait and mobility Onset Date 12/27/21 M3 PT-IP Subjective Start: 01/03/22 13:57 Freq: NEEDED Status: Active Protocol: Document 01/04/22 15:07 SP (Rec: 01/04/22 18:46 SP [id number]) Subjective Physical Therapy Visit Type Type Treatment Note Visit Start Time 15:07 Visit Stop Time 15:48 Total Visit Minutes 41 Notes Vitals taken: supine: BP 130/50 HR 93 SaO2 98% on RA post room mobility: 122/46 HR 95 Number of COMPENSATION AND BENEFITS ANALYST Visits 1 Physical Therapy Visit Comments Patient Comments Pt reports tired with mobility but willing to assess stairs for awareness for returning to daughter's home. Patient Goals He wants to get better and go to daughter's home. His plan is to return home to [place] in Oct. M4 PT-IP Mobility and Gait Start: 01/03/22 13:57 Freq: NEEDED Status: Active Protocol: Document 01/04/22 15:07 SP (Rec: 01/04/22 18:46 SP [id number]) PT-Bed Mobility Assessment Rolling Level of Assist Independent Supine to Sit Supine to Sit Standby Assistance,Head of Bed Elevated,Bedrails Scooting Scooting to Edge of Bed Standby Assistance PT-Transfer Assessment Sit to and From Stand Sit to and from Stand Contact Guard Assistance Equipment Transfer Assistive Device Gait Belt,Front Wheeled Walker Transfers Transfer Destination Chair,Wheelchair Transfer Technique pt ambulated using FWW, CGA w/ SPC Transfer Ability Level of Assist Standby Assistance,Contact Guard Assistance,Use of Upper Extremities Comments Mobility Comments Pt completed LR R elevated HOB 15 deg use bed rails and R SL >sit, scoot to EOB SBA. Education use of LR method for decrease pressure on back/ abdomen for now. STS from EOB ,SPT to chair w/ FWW CGA, cued back up fully and reach with UEs and slow descend chair for safety. Pt rested in chair recovery. Pt STS SBA gait w/ FWW across room to w/c in hallway 20 ft, good hand placement in fWW positioning. Pt wheeled to stairs. Pt completed 3 stairs x2 CGA w/ BHR before stated to tired and need to sit and rest in w/c. Pt was ableto complete needed to enter daughter's home but not ableto ascend 12 step needed to bedroom but spoke to daughter over phone and pt can sleep on sleeper sofa on main level until builds up endurance. Pt walked 15 more feet to chair in room w/ FWW SBA, seated rest in chair,30 ft with SPC CGA no deviations or LOB but agrees FWW more support and not as tired. Daughter stated can borrow one from [employer]. Pt is ok to return home with daughter when medically cleared. Pt had call light and all needs in reach before left. Gait Assessment Gait Gait Assistance Required: Standby Assistance,Contact Guard Assist,1 Person Assist Distance (Feet) 30 Assistive Devices Assistive Device Gait Belt,Front Wheeled Walker Orthotic/Prosthetic Devices or Brace: No Gait Deviations General Gait Pattern Antalgic,Decreased Stride Length Factors Limiting Gait Function Factors Limiting Gait Function Decreased Activity Tolerance, Decreased Strength,Poor Safety Awareness Comments Gait Comments No reports dizziness. see mobility comment details. Stair Climbing Assessment Evaluation Level of Assist On Stairs Contact Guard Assistance Devices Stair Climbing Assistive Devices Left Railing,Right Railing Technique/Endurance Stair Climbing Direction Ascend and Descend Stair Climbing Technique Step to Step Number of Steps Climbed 3 Stair Climbing Set # Repetitions (reps) 2 Comments Stair Climbing Comments see mobility comments. PT-Balance Assessment Sitting Balance and Reactions Static Sitting Balance Ability Normal Dynamic Sitting Balance Ability Good Standing Balance and Reactions Static Standing Balance Ability Good Dynamic Standing Balance Ability Good Device Used FWW, Fair w/ SPC M5 PT-IP Objective Assessments Start: 01/03/22 13:57 Freq: NEEDED Status: Active Protocol: Document 01/03/22 13:33 DLM (Rec: 01/03/22 14:13 DLM [id number]) Orientation Orientation/Cognition Level of Alertness Alert Orientation Name,Age,Birthday,Month,Date, Year,Day of Week,Place, Situation Language Function Ability No Deficits Noted Safety Awareness Understands Safety Issues Memory Description No Deficits Noted Comments prosthetic right eye Gross Range of Motion Upper Extremity ROM Assessment Bilaterally Impaired Impairments end range stiffness, tolerating about 90 degrees of elevation at this time Lower Extremity ROM Assessment Within Functional Limits Strength Lower Extremity Strength Assessment Bilaterally Impaired Hip hip flex 2+/5 B Knee 4/5 Ankle DF 4+/5 Coordination Assessment Gross Coordination Gross Coordination WNL Sensation Assessment Sensation Gross Sensation WNL Comments Sensation Comments he denies any numbness/ tingling in hands/feet Muscle Tone Muscle Tone WNL Yes M6 PT-IP Treatment Start: 01/03/22 13:57 Freq: NEEDED Status: Active Protocol: Document 01/04/22 15:07 SP (Rec: 01/04/22 18:46 SP [id number]) Physical Therapy Treatment Education Education Provided Safety M7 PT-IP Assessment and Plan Start: 01/03/22 13:57 Freq: NEEDED Status: Active Protocol: Document 01/04/22 15:07 SP (Rec: 01/04/22 18:46 SP [id number]) PT Summary Assessment and Plan Potential Rehabilitation Potential Good Status of Condition at Evaluation Evolving Summary Impairments ROM,Strength,Balance,Bed Mobility,Transfers,Gait, Activity Tolerance Progress Towards Goals Progressing Toward Goals,Slow Progress due to Pain,Slow Progress due to Activity Tolerance Assessment Summary Pt takes time to mobility, rest between activities for recovery. Bed mobility SBA, gait CG- SBA w/ FWW, CGA w/ SPC but tends to reach for other furniture with opp UE. Danielugher acquiring FWW to [facility]. Stair mgt stairs SBA BHR. Pt is ok to return home with daughter when medically cleared, recommending HHPT with pt and daughter in agreement. Goals Bed Mobility Goal Independent Transfer Goal Standby Assistance,Front Wheeled Walker Gait Goal Standby Assistance,Front Wheel Walker Gait Distance 100 feet Other Goals up and down 2 steps with CG/ min assist and cane Days to Meet Goals 5 Frequency of Treatment Frequency Of Treatment Once a Day Treatment Plan Physical Therapy Treatment Plan Bed Mobility Training,Transfer Training,Gait Training, Therapeutic Exercise,Balance Retraining,Discharge Planning, Neuromuscular Re-ed Other Recommendations and Next Treatment Gait with SPC, further Focus distance endurance w/ FWW, bed mob LRs, standing balance activities. Precautions Other Precautions new hidalgo catheter Hx of prostate cancer with bone mets Recommendations To Nursing Amount of Assist Needed 1 Person Assist Discharge Recommendations PT Discharge Recommendations Home with Assistance,Home Health Equipment Needed for Home Before Check daughter acquired FWW Discharge from [facility] Transportation Needs at Discharge Private Vehicle
[2022-01-04] MEDS: POTASSIUM CHLORIDE 20 MEQ TAB PO ×3 (16:25→19:36)
[2022-01-04 17:16] LABS: Appearance Urine UA CLEAR; Bilirubin Urine UA NEGATIVE (NEGATIVE); Color Urine UA YELLOW; Glucose Urine UA 2+ g/dL (Negative); Ketones Urine UA NEGATIVE (NEGATIVE); Leukocyte Esterase Urine UA 1+ (NEGATIVE); Nitrite Urine UA NEGATIVE (Negative); Occult Blood Urine UA 3+ (Negative); Protein Urine UA 1+ (Negative); Urobilinogen Urine UA 0.2 E.U./dL (0.2)
[2022-01-04 17:17] LABS: Bacteria Urine Few (2-10); Culture Indicated Urine Specimen Cultured; RBC Urine 10-30/HPF (0-5/HPF); WBC Urine >100/HPF (0-5/HPF)
--- NOTE | 2022-01-04 17:21 | CM.DPNOTE ---
Discharge Planning Note: Met with patient. Spoke with daughter, obtained her address where he will be staying on dc in [place]. His spouse Celeste is also staying there and is a supportive and helpful spouse. Daughter and spouse coming up this evening to visit. Daughter works tomorrow. Patient has hidalgo, assuming he will discharge with. If dc to home will need HH RN, PT. Referrals sent to [facility] this pm. Plan: Follow up with discharge plans, speak with HH agencies. Rajni Orellana RN, DCP
--- NOTE | 2022-01-04 17:26 | PC.NURSE ---
17:[address] Thomas that pt has no IV access, multiple attempts to start IV by 2 RNs that did not work. Per Dr. Thomas encourage increased fluid intake.
[2022-01-04] MEDS: cefTRIAXone 2,000 MG in SODIUM CHLORIDE 0.9% 100 ML 200 MG IV (18:41)
[2022-01-04] MEDS: SODIUM CHLORIDE 0.9% 1,000 ML 100 ML IV (18:41)
--- NOTE | 2022-01-04 21:33 | PC.NURSE ---
Patient is alert and oriented. Breath sounds CTA with RA sat of 98%. HRR. Denies nausea or abdominal pain. BT present and had mostly liquid stool on bedpan. Indwelling catheter is patent; urine is clear, light chichi; plan is to discharge with catheter. Is able to turn himself in bed. Gait not assessed but is seeing PT for mobility and has both weakness and limited ROM. Refusing to wear SCD's so reminded to ankle wave. Denied pain. Fall risk score is high and bed alarm is activated. Noted area around rectum is reddened and cracked; zinc type barrier cream applied.
[2022-01-05 03:03] VITALS: BP 131/51; PULSE 89; RESP 16; TEMP 36.6; O2SAT 99
[2022-01-05] MEDS: SODIUM CHLORIDE 0.9% 1,000 ML 100 ML IV (05:13)
[2022-01-05 06:02] LABS: BUN Creatinine Ratio 10.3 (6-22); Blood Urea Nitrogen 9 mg/dL (9-20); Calcium 7.3 mg/dL (8.4-10.2); Carbon Dioxide 20 mmol/L (22-32); Chloride 106 mmol/L (98-107); Estimated Glomerular Filt Rate > 60 mL/min (>60); Glucose 115 mg/dL (80-110); HEMOLYSIS < 15 (0-50); Sodium 136 mmol/L (137-145)
[2022-01-05 06:05] LABS: Add Manual Diff / Slide Review NO; Basophils Absolute Auto 0 /uL (0-100); Basophils Percent Auto 0.2 % (0-2); Eosinophils Absolute Auto 200 /uL (0-450); Eosinophils Percent Auto 1.7 % (2-4); Hematocrit 27.9 % (41-53); Lymphocytes Absolute Auto 1000 /uL (1100-4500); Lymphocytes Percent Auto 6.8 % (25-40); Mean Corpuscular HGB Conc 32.4 % (30-36); Mean Corpuscular Hemoglobin 25.8 PG (26-34); Mean Corpuscular Volume 79.6 fL (80-100); Monocytes Absolute Auto 900 /uL (0-900); Monocytes Percent Auto 6.3 % (3-14); Neutrophils Absolute Auto 12500 /uL (1500-7000); Platelet Count 273 X10^3/uL (150-400); Red Blood Cell Count 3.51 X10^6/uL (4.5-5.9); Red Cell Distribution Width 18.4 % (11.6-14.8); White Blood Cell Count 14.7 X10^3/uL (4.5-11.0)
[2022-01-05 06:15] VITALS: BP 130/52; PULSE 82; RESP 14; TEMP 36.9; O2SAT 98
[2022-01-05] MEDS: AMIODARONE 200 MG TABLET PO (08:55)
[2022-01-05] MEDS: MULTIVITAMIN 1 TABLET 1 TAB PO (08:55)
[2022-01-05] MEDS: APIXABAN 5 MG TABLET PO (08:55)
[2022-01-05] MEDS: ASCORBIC ACID 500 MG TABLET PO (08:55)
[2022-01-05 08:56] VITALS: BP 150/54; PULSE 100
[2022-01-05] MEDS: METOPROLOL ER 50 MG TABLET 100 MG PO (08:56)
[2022-01-05] MEDS: NIFEdipine 30 MG TAB ER 90 MG PO (08:56)
[2022-01-05 09:57] VITALS: BP 150/54; PULSE 98; RESP 16; TEMP 36.7; O2SAT 99
[2022-01-05 10:08] VITALS: PULSE 90
--- NOTE | 2022-01-05 11:42 | PT.IPTN ---
Current Diagnoses Hydronephrosis with ureteral stricture, not elsewhere classified (12/27/21) Surgery Performed Operation Date: 12/30/21 17:15 Actual Procedures p Cystoscopy with dilation of bladder neck contracture - Inocencio Rankin MD Physical Therapy Treatment Note M2 PT-IP Current Condition Start: 01/03/22 13:57 Freq: NEEDED Status: Active Protocol: Document 01/04/22 15:07 SP (Rec: 01/04/22 18:46 SP [id number]) Physical Therapy Current Condition Current Condition Evaluation Date 01/03/22 Treatment Diagnosis ureteral obstruction, impaired gait and mobility Onset Date 12/27/21 M3 PT-IP Subjective Start: 01/03/22 13:57 Freq: NEEDED Status: Active Protocol: Document 01/05/22 11:32 KS (Rec: 01/05/22 12:55 KS [id number]) Subjective Physical Therapy Visit Type Type Treatment Note Visit Start Time 11:32 Visit Stop Time 11:42 Total Visit Minutes 10 Number of MAINFRAME SYSTEMS PROGRAMMER Visits 2 Physical Therapy Visit Comments Patient Comments Pt agreeable to ambulate. Patient Goals He wants to get better and go to daughter's home. His plan is to return home to [place] in Oct. M4 PT-IP Mobility and Gait Start: 01/03/22 13:57 Freq: NEEDED Status: Active Protocol: Document 01/05/22 11:32 KS (Rec: 01/05/22 12:55 KS [id number]) PT-Bed Mobility Assessment Supine to Sit Supine to Sit Standby Assistance,Head of Bed Elevated,Bedrails Scooting Scooting to Edge of Bed Standby Assistance PT-Transfer Assessment Sit to and From Stand Sit to and from Stand Contact Guard Assistance Equipment Transfer Assistive Device Gait Belt,Front Wheeled Walker Transfers Transfer Destination Toilet Transfer Technique pt ambulated using FWW Transfer Ability Level of Assist Standby Assistance,Contact Guard Assistance,Use of Upper Extremities Comments Mobility Comments Pt in bed upon arrival and agreeable to ambulate w/ FWW. Pt SBA for bed mobility, CGA for sit<>stand w/ FWW. Pt ambulated ~60 ft around room w / FWW SBA to CGA. Pt states he feels safe ambulating w/ FWW and will want one for home use . Spoke w/ pts daughter who will contact the [facility] to acquire FWW for pt. Pt requested to use toilet for BM , left w/ call light and RN/ CHRO aware. Gait Assessment Gait Gait Assistance Required: Standby Assistance,Contact Guard Assist,1 Person Assist Distance (Feet) 60 Assistive Devices Assistive Device Gait Belt,Front Wheeled Walker Orthotic/Prosthetic Devices or Brace: No Gait Deviations General Gait Pattern Antalgic,Decreased Stride Length Factors Limiting Gait Function Factors Limiting Gait Function Decreased Activity Tolerance, Decreased Strength Comments Gait Comments Pt ambulated w/ FWW no LOB or c/o dizziness. PT-Balance Assessment Sitting Balance and Reactions Static Sitting Balance Ability Normal Dynamic Sitting Balance Ability Good Standing Balance and Reactions Static Standing Balance Ability Good Dynamic Standing Balance Ability Good Device Used FWW M5 PT-IP Objective Assessments Start: 01/03/22 13:57 Freq: NEEDED Status: Active Protocol: Document 01/03/22 13:33 DLM (Rec: 01/03/22 14:13 DL [id number]) Orientation Orientation/Cognition Level of Alertness Alert Orientation Name,Age,Birthday,Month,Date, Year,Day of Week,Place, Situation Language Function Ability No Deficits Noted Safety Awareness Understands Safety Issues Memory Description No Deficits Noted Comments prosthetic right eye Gross Range of Motion Upper Extremity ROM Assessment Bilaterally Impaired Impairments end range stiffness, tolerating about 90 degrees of elevation at this time Lower Extremity ROM Assessment Within Functional Limits Strength Lower Extremity Strength Assessment Bilaterally Impaired Hip hip flex 2+/5 B Knee 4/5 Ankle DF 4+/5 Coordination Assessment Gross Coordination Gross Coordination WNL Sensation Assessment Sensation Gross Sensation WNL Comments Sensation Comments he denies any numbness/ tingling in hands/feet Muscle Tone Muscle Tone WNL Yes M6 PT-IP Treatment Start: 01/03/22 13:57 Freq: NEEDED Status: Active Protocol: Document 01/05/22 11:32 KS (Rec: 01/05/22 12:55 KS [id number]) Physical Therapy Treatment Education Education Provided Safety M7 PT-IP Assessment and Plan Start: 01/03/22 13:57 Freq: NEEDED Status: Active Protocol: Document 01/05/22 11:32 KS (Rec: 01/05/22 12:55 KS [id number]) PT Summary Assessment and Plan Potential Rehabilitation Potential Good Summary Progress Towards Goals Progressing Toward Goals,Slow Progress due to Activity Tolerance Assessment Summary Pt SBA to CGA for mobility and able to ambulate ~60 ft w/ FWW. Treatment cut short due to pt needing to have bowel movement, however pt states he feels safe to go home w/ FWW. Pts daughter plans to acquire FWW from [facility], but if not will dispense from hospital. Goals Bed Mobility Goal Independent Transfer Goal Standby Assistance,Front Wheeled Walker Gait Goal Standby Assistance,Front Wheel Walker Gait Distance 100 feet Other Goals up and down 2 steps with CG/ min assist and cane Days to Meet Goals 5 Frequency of Treatment Frequency Of Treatment Once a Day Treatment Plan Physical Therapy Treatment Plan Bed Mobility Training,Transfer Training,Gait Training, Therapeutic Exercise,Balance Retraining,Discharge Planning, Neuromuscular Re-ed Precautions Other Precautions new hidalgo catheter Hx of prostate cancer with bone mets Recommendations To Nursing Amount of Assist Needed 1 Person Assist Discharge Recommendations PT Discharge Recommendations Home with Assistance,Home Health Equipment Needed for Home Before Check daughter acquired FWW Discharge from [facility] Transportation Needs at Discharge Private Vehicle
[2022-01-05 12:01] LABS: Magnesium 1.5 mg/dL (1.6-2.3)
[2022-01-05] MEDS: POTASSIUM CHLORIDE 20 MEQ TAB 40 MEQ PO (12:39)
[2022-01-05] MEDS: MAGNESIUM SULFATE 2 GM/50 ML PIGGYBACK IV (12:39)
--- NOTE | 2022-01-05 12:53 | CM.DPNOTE ---
Addendum entered by Abbie Orellana R.N. 01/05/22 16:09: Home Health agencies cannot accept due to has no PCP at this time here since he is just visiting his daughter here in [place]. He will be following up with his urologist outpatient for hidalgo management. Spoke with daughter that if there are issues she will need to take him to an urgent care, she verbalizes understanding. SAM[facility] Original Note: Discharge Planning Note Patient to be discharged today. Awaiting which agency can take patient, [facility]. Patient to go to his daughter's in [place]. Patient's spouse and his daughter will help manage his care. When he is stable he and his spouse will eventually return to [place] where they are from. (He has been visiting daughter here in [place] when his reason for admission had arisen). Plan: Discharge home under daughter and spouse's care in [place] with Home Health services ([facility]). Rajni Orellana RN/DCP
--- NOTE | 2022-01-05 13:07 | OT.IPNOTE ---
Pt planned for discharge home today. Pt declined OT services at this time.
--- NOTE | 2022-01-05 16:17 | P.DS_ITS ---
History of Present Illness History of Present Illness Date Patient Seen: 12/27/21 Time Patient Seen: 06:42 Chief complaint: ABD PAIN Narrative: Per admitting provider: This is an 81-year-old male with an extensive past medical history which he is unable to describe who presents now with 1 day of abdominal pain, onset of vomiting early this morning and apparent lactic acidosis. He is visiting his daughter from [place]. We are still obtaining his medication list to establish some of the parts of his past medical history. He denies any history of previous abdominal pain condition or abdominal surgery. A lipase level is pending. He does not drink alcohol. He has no history of pancreatitis or colitis. He has no urinary history that he can tell us about. There has been no fever, diarrhea or rectal bleeding. He has had no bowel movement for 3 days. His white blood count is 11.3 with a lactic acid level of 2.8. The creatinine is 1.5. The baseline is unclear. His CT scan shows [id number] right hydronephrosis with inflammation of the UPJ area. There is low-grade cystitis and there is mild wall thickening of the cecum and colon. The differential remains broad with possible viral gastroenteritis, isolated colitis, pancreatitis, ureterolithiasis, cystitis and pyelonephritis. His UA has 30-100 rbc's and 1-5 wbc's. Discharge Providers Provider Date of admission: 12/27/21 05:51 Discharge Date: 01/05/22 Consults: 01/03/22 11:41 Consult to Occupational Therapy Evaluate & Treat Comment: Physician Instructions: Evaluate and treat Consult to Physical Therapy Evaluate & Treat Comment: Physician Instructions: Evaluate and Treat Discharge provider: You Gorman MD Summary Hospital Course Discharge Diagnosis: 1. Acute right hydronephrosis with calcyeal rupture and acute right ureter o bstruction 2. Ileus 3. Leukocytosis, possible UTI 4. VIOLETA 5. Type 2 Diabetes 6. Metastatic prostate cancer 7. Chronic atrial fibrillation 8. Hypertension 9. Hypokalemia Hospital Course: Mr. Saldivar was admitted with abdominal pain. Workup showed initially a CT scan with moderate right sided hydronephrosis. He additionall had ileus and had an NG tube placed for this. Follow up CT scan showed calyceal rupture and urinary leak. He was found to have leukocytosis. He had urine cultures done and was started empirically on antibiotics. Culture returned negative. Urology did do cystoscopy and could not find the ureter opening possibly from scarring from treatment in the past for his prostate cancer. Transfer was then attempted for possible percutaneous nephrostomy. He had a hidalgo in place during this. Urology at was contacted and new CT was ordered which showed improvement of the hydronephrosis and perinephric stranding. He had improvement in his VIOLETA. The recommendation was to not transfer or perform perc nephrostomy but to discharge the patient and have him follow up with urology within one week. He was to keep the hidalgo. He could undergo outpatient voiding trial. Of note his antibiotics were stopped and he had a repeat increase in his white count. Urine culture again returned negative but he was discharged with an additional week of antibiotics for concern for possible UTI/pyelonephritis. Exam Vital Signs (past 8 hours): Fraction of Inspired Oxygen 28 Oxygen Delivery Method Room Air Oxygen Flow Rate 0 Narrative Exam Narrative: General:? chronically ill appearing, fatigued Lungs:? clear bilaterally Cardio:?regular rate and rhythm, no murmurs Abdomen: soft, nontender, nondistended Objective Labs Result Diagrams: 01/05/22 05:40 01/05/22 05:40 [facility] Medical History Afib Diabetes mellitus Hydronephrosis of right kidney Hyperlipidemia Hypertension Social History household members: spouse and family Smoking Status: Never smoker alcohol intake: never Discharge Plan Discharge Plan Patient Disposition: Home Provider Discharge Comment: 1. Continue hidalgo catheter 2. Make a f/u appt w/Dr. Rankin to be seen in 1 week for a voiding trial 3. Complete your antibiotics 4. Follow-up with your usual doctors upon return to [place] 5. Recommend you get follow up labs: CBC, BMP within 1 week Discharge orders & Medications Prescriptions: New amoxicillin-pot clavulanate 875-125 mg tablet 1 tab PO BID Qty: 14 0RF potassium chloride [Klor-Con M20] 20 mEq tablet,ER particles/crystals 20 meq PO DAILY Qty: 7 0RF Continued prednisone 10 mg Tablet 10 mg PO DAILY nifedipine 90 mg Tablet Extended Release 90 mg PO DAILY amiodarone 200 mg Tablet 200 mg PO BID benzonatate 200 mg Capsule 200 mg PO TID PRN (Reason: Cough) metoprolol succinate 100 mg Tablet Extended Release 24 Hr 100 mg PO DAILY clobetasol 0.05 % Cream 1 applic TOPICAL BID PRN (Reason: rash on palms) ascorbic acid (vitamin C) 500 mg Tablet 500 mg PO DAILY pravastatin 20 mg Tablet 20 mg PO DAILY acetaminophen [Tylenol] 325 mg Capsule 325 mg PO QID PRN (Reason: Pain (Scale Score 1-3)) multivit with min-folic acid 0.4 mg Tablet 1 tab PO DAILY abiraterone [Zytiga] 250 mg Tablet 1,000 mg PO DAILY Rx Instructions: must be taken on empty stomach, at least 1 hr before or 2 hrs after a meal/food Janumet XR 50-1,000 mg Tablet, Er Multiphase 24 Hr 2 tab PO DAILY apixaban 5 mg Tablet 5 mg PO BID empagliflozin 25 mg Tablet 25 mg PO QAM Medication counseling provided by Pharmacist: No Follow up/Referrals: Inocencio Rankin MD [Physician] - Discharge Health Status Multidrug resistant organism: No MDRO Diet/Activity/Treatments Diet: Diet as Tolerated Activity: As karen; HH PT/OT eval and treat Catheter: 2-way Hidalgo Oxygen: N/A Visit Report/Discharge Packet Instructions: How to Care for Your Hidalgo Catheter -- Male, DI for Cystoscopy
--- NOTE | 2022-01-05 16:51 | PC.NURSE ---
Discharge Note Patient A&O, VSS, RA, no complaints of pain/discomfort. Discharge packet reviewed with patient and daughter, all questions/concerns addressed. TELE/PIV discontinued. Patient able to dress self with minimal assistance. Trent care and leg bag teaching done by this RN with patient daughter at bedside. Supplies sent home with patient. Patient reminded to crop picker prescriptions on way home from preferred pharmacy. Patient taken down via wheelchair to POV.
== END 2022-01-05 16:50 | disposition home health service (06) | DRG 694 ==
LOC: ED 02:26 → AC 06:03
PROVIDERS: Family Medicine; Internal Medicine; Specialist; Admitting Provider Family Medicine; Emergency Provider Emergency Medicine; Referring Provider Emergency Medicine; Visit Provider Family Medicine
PROC: 0T7D8ZZ Dilation of Urethra, Via Natural or Artificial Opening Endoscopic (ICD-10-PCS; principal; 2021-12-30 17:15)
DX: N13.1 Hydronephrosis with ureteral stricture, not elsewhere classified (principal); E87.2 Acidosis; C79.51 Secondary malignant neoplasm of bone; R18.8 Other ascites; K56.7 Ileus, unspecified; I48.20 Chronic atrial fibrillation, unspecified; N28.89 Other specified disorders of kidney and ureter; N17.9 Acute kidney failure, unspecified; R31.29 Other microscopic hematuria; C61 Malignant neoplasm of prostate; N32.0 Bladder-neck obstruction; N35.819 Other urethral stricture, male, unspecified site; E87.6 Hypokalemia; I10 Essential (primary) hypertension; D72.829 Elevated white blood cell count, unspecified; E11.65 Type 2 diabetes mellitus with hyperglycemia; E78.5 Hyperlipidemia, unspecified; Z20.822 Contact with and (suspected) exposure to COVID-19; Z79.84 Long term (current) use of oral hypoglycemic drugs; Z79.01 Long term (current) use of anticoagulants
CPT/HCPCS: 36415; 74022; 74176; 74177; 74178; 80048; 80053; 81001; 82962; 83605; 83690; 83735; 84132; 85025; 86850; 86900; 86901; 87040; 87086; 87635; 93005; 94760; 96365; 96375; 96376; 97116; 97166; 97530; 99284; C9803; J0330; J0360; J0690; J0696; J1170; J1650; J1815; J2270; J2405; J2543; J2704; J3010; J3475; Q9967

== ENCOUNTER 2022-01-16 15:20 | Emergency (ER) | payer MEDICARE, SELFPAY ==
[2022-01-16 11:26] VITALS: BMI 25.0
[2022-01-16 15:32] VITALS: BP 131/59; PULSE 79; RESP 16; TEMP 36.6; O2SAT 98; BMI 24.1
[2022-01-16 16:39] LABS: Appearance Urine UA SL CLOUDY; Bilirubin Urine UA NEGATIVE (NEGATIVE); Color Urine UA YELLOW; Glucose Urine UA 2+ g/dL (Negative); Ketones Urine UA NEGATIVE (NEGATIVE); Leukocyte Esterase Urine UA 3+ (NEGATIVE); Nitrite Urine UA NEGATIVE (Negative); Occult Blood Urine UA 3+ (Negative); Protein Urine UA 1+ (Negative); Urobilinogen Urine UA 0.2 E.U./dL (0.2); pH Urine UA 5.5 (4.5-8.0)
[2022-01-16 16:48] LABS: Bacteria Urine Moderate (10-30); Culture Indicated Urine Specimen Cultured; RBC Urine 30-100/HPF (0-5/HPF); Squamous Epithelial Cell Urine 0-1 /HPF (0-5/HPF); WBC Urine 30-100/HPF (0-5/HPF)
--- NOTE | 2022-01-16 16:52 | ED.MALEGU ---
HPI - Male Genitourinary General Chief complaint: Urogenital-Male Stated complaint: Can't pee, has a catheter Time Seen by Provider: 01/16/22 16:13 Source: patient, family and old records reviewed Mode of arrival: Family Vehicle Limitations: no limitations History of Present Illness HPI Narrative: This is a 81-year-old male with history who presents with issues with his Trent catheter. Patient had surgery on 12/30/2021 with cystoscopy and dilation of bladder neck contracture and difficult catheter placement and attempted urinary stent placement which was unsuccessful secondary to stricture with Dr. Rankin. Patient states that he noticed some white stuff blocking the catheter, last night they had called Urology they were going to come in but the blockage moved down through the tubing into his Trent bag and he began draining urine again. Today he is noticed that he is not draining urine well he is had urine coming out around the edge of the catheter and is having abdominal discomfort. He denies fevers or chills. No new chest pain or shortness of breath. No nausea or vomiting. No constipation or issues with bowel movements. Patient catheter was noted to be a little bit low was adjusted by nursing and is draining and patient is now asymptomatic. Related Data Home Medications Medication Instructions Recorded Confirmed abiraterone 250 mg tablet (Zytiga) 1,000 mg PO DAILY 12/27/21 12/27/21 acetaminophen 325 mg capsule 325 mg PO QID PRN Pain (Scale 12/27/21 12/27/21 (Tylenol) Score 1-3) amiodarone 200 mg tablet 200 mg PO BID 12/27/21 12/27/21 apixaban 5 mg tablet 5 mg PO BID 12/27/21 12/27/21 ascorbic acid (vitamin C) 500 mg 500 mg PO DAILY 12/27/21 12/27/21 tablet benzonatate 200 mg capsule 200 mg PO TID PRN Cough 12/27/21 12/27/21 clobetasol 0.05 % topical cream 1 applic topical BID PRN rash on 12/27/21 12/27/21 palms empagliflozin 25 mg tablet 25 mg PO QAM 12/27/21 12/27/21 metoprolol succinate 100 mg 100 mg PO DAILY 12/27/21 12/27/21 tablet,extended release 24 hr multivitamin with minerals-folic 1 tab PO DAILY 12/27/21 12/27/21 acid 0.4 mg tablet nifedipine 90 mg tablet,extended 90 mg PO DAILY 12/27/21 12/27/21 release pravastatin 20 mg tablet 20 mg PO DAILY 12/27/21 12/27/21 prednisone 10 mg tablet 10 mg PO DAILY 12/27/21 12/27/21 sitagliptin 50 mg-metformin ER 2 tab PO DAILY 12/27/21 12/27/21 1,000 mg tablet,extended release 24h mp (Janumet XR) Previous Rx's Medication Instructions Recorded amoxicillin 875 mg-potassium 1 tab PO BID #14 tabs 01/05/22 clavulanate 125 mg tablet potassium chloride 20 mEq 20 meq PO DAILY #7 tabs 01/05/22 tablet,extended release(part/cryst) (Klor-Con M) ciprofloxacin HCl 500 mg tablet 500 mg PO BID #10 tabs 01/16/22 Allergies Allergy/AdvReac Type Severity Reaction Status Date / Time No Known Drug Allergies Allergy Verified 01/16/22 15:36 Review of Systems Review of Systems ROS Unobtainable: All systems reviewed & are unremarkable except as noted in HPI and below Patient History Medical History Afib Diabetes mellitus Hydronephrosis of right kidney Hyperlipidemia Hypertension Social History household members: spouse and family Smoking Status: Never smoker alcohol intake: never Smoking Status: Never smoker alcohol intake frequency: 0-2 drinks per day Substance Use Type: does not use Exam Narrative Exam Narrative: GENERAL: Alert and oriented x three, male in mild distress HEENT: Head normocephalic, atraumatic, EOMI, pupils reactive, face symmetric, moist mucous membranes NECK: Supple, full range of motion CARDIOVASCULAR: Regular rate and rhythm without murmurs, rubs or gallops. RESPIRATORY: Breath sounds equal bilaterally, no wheezes rales or rhonchi. ABDOMEN: Soft, nontender. Normoactive bowel sounds all 4 quadrants. No guarding or rebound, rigidity, no mass : No CVA tenderness. Male: normal external examination, no penile discharge or lesions, testicles non-tender, cremasteric reflex intact, no inguinal hernias noted. EXTREMITIES: Normal range of motion, no clubbing or edema. Neurovascularly intact NEUROLOGICAL: Cranial nerves II through XII grossly intact. Moving all extremities SKIN: Warm, dry, no petechiae, no rashes or lesions. Initial Vital Signs Initial Vital Signs: Vital Signs Temperature 97.9 F 01/16/22 15:32 Pulse Rate 79 01/16/22 15:32 Respiratory Rate 16 01/16/22 15:32 Blood Pressure 131/59 L 01/16/22 15:32 Pulse Oximetry 98 01/16/22 15:32 Oxygen Delivery Method 01/16/22 15:32 Course Orders Ordered: ED Orders 01/16/22 16:26 Urinalysis and Microscopic Stat Urine Culture Stat Vital Signs Vital signs: Vital Signs - 8 hr 01/16/22 15:32 Temperature 97.9 F Pulse Rate 79 Respiratory Rate 16 Blood Pressure 131/59 L Pulse Oximetry 98 Oxygen Delivery Method Room Air MDM - Male Genitourinary Lab Data Labs: Lab Results 01/16/22 Range/Units 16:26 Urine Color Yellow Urine Appearance Sl cloudy Urine pH 5.5 (4.5-8.0) Ur Specific [place] 1.010 (1.000-1.035) Urine Protein 1+ H (Negative) Urine Glucose (UA) 2+ H (Negative) g/dL Urine Ketones Negative (NEGATIVE) Urine Occult Blood 3+ H (Negative) Urine Nitrate Negative (Negative) Urine Bilirubin Negative (NEGATIVE) Urine Urobilinogen 0.2 (0.2) E.U./dL Ur Leukocyte Esterase 3+ H (NEGATIVE) Urine RBC 30-100/hpf H (0-5/HPF) Urine WBC 30-100/hpf H (0-5/HPF) Ur Squamous Epith Cells 0-1 /hpf (0-5/HPF) Urine Bacteria Moderate (10-30) H (None) Urine Yeast 10-30/hpf H (None) Ur Culture Indicated? Specimen cultured MDM Narrative Medical decision making narrative: Patient's Trent catheter was flushed and irrigated and is draining well, no additional sediment is noted. Patient's urine does appear infected was started on Cipro 500 mg p.o. b.i.d. he has follow-up on the to have his catheter removed, as well as voiding trial. Patient has otherwise been asymptomatic without any other infectious symptoms. Discharge Plan Departure Patient Disposition: Home Clinical Impression: Acute UTI, Malfunction of Trent catheter Instructions: DI for Urinary Tract Infection (UTI) Activity Restrictions/Additional Instructions: Follow-up with Dr. Rankin at your scheduled appointment. Start the oral antibiotic today that was sent. This is a higher dose than was prescribed by Dr. Rankin for a longer period of time. Prescription sent to was to [facility] in [place] You can attempt to flush the catheter once at home if this is unsuccessful please return for blockages or malfunction. Please return for fevers, new or worsening abdominal, back or flank pain, persistent vomiting, blockage of her catheter if it is not draining urine or other new or concerning symptoms. Prescriptions: New ciprofloxacin HCl 500 mg tablet 500 mg PO BID Qty: 10 0RF No Action prednisone 10 mg Tablet 10 mg PO DAILY nifedipine 90 mg Tablet Extended Release 90 mg PO DAILY amiodarone 200 mg Tablet 200 mg PO BID benzonatate 200 mg Capsule 200 mg PO TID PRN (Reason: Cough) metoprolol succinate 100 mg Tablet Extended Release 24 Hr 100 mg PO DAILY clobetasol 0.05 % Cream 1 applic TOPICAL BID PRN (Reason: rash on palms) ascorbic acid (vitamin C) 500 mg Tablet 500 mg PO DAILY pravastatin 20 mg Tablet 20 mg PO DAILY acetaminophen [Tylenol] 325 mg Capsule 325 mg PO QID PRN (Reason: Pain (Scale Score 1-3)) multivit with min-folic acid 0.4 mg Tablet 1 tab PO DAILY abiraterone [Zytiga] 250 mg Tablet 1,000 mg PO DAILY Rx Instructions: must be taken on empty stomach, at least 1 hr before or 2 hrs after a meal/food Janumet XR 50-1,000 mg Tablet, Er Multiphase 24 Hr 2 tab PO DAILY apixaban 5 mg Tablet 5 mg PO BID empagliflozin 25 mg Tablet 25 mg PO QAM amoxicillin-pot clavulanate 875-125 mg tablet 1 tab PO BID Qty: 14 0RF potassium chloride [Klor-Con M20] 20 mEq tablet,ER particles/crystals 20 meq PO DAILY Qty: 7 0RF Referrals: Inocencio Rankin MD [Physician] - Visit Report Forms: Patient Portal/API
== END 2022-01-16 17:53 | disposition home or self-care (01) ==
PROVIDERS: Emergency Provider Emergency Medicine
DX: N39.0 Urinary tract infection, site not specified (principal); T83.011A Breakdown (mechanical) of indwelling urethral catheter, initial encounter
CPT/HCPCS: 81001; 87077; 87086; 87147; 99281; 99282

== ENCOUNTER → 2022-01-27 13:54 | Outpatient (CLI) | payer MEDICARE, SELFPAY ==
[2022-01-16 11:26] VITALS: BMI 25.0
== END ==
PROVIDERS: Visit Provider Specialist
DX: N39.0 Urinary tract infection, site not specified (principal); C61 Malignant neoplasm of prostate; N32.0 Bladder-neck obstruction
CPT/HCPCS: 51798; 81002; 87077; 87086; 99215